=== PATIENT | female | born 1935 | race Caucasian/White ===

== ENCOUNTER 2016-07-17 10:57 | Inpatient (IN) | payer OTHER ==
[~2016-07-17] VITALS: Ht 157.5 cm; Wt 57.6 kg
[~2016-07-17 10:57] MED LIST: ASPEC81 PO; B-COTAB53 PO; CALC1TAB9 PO; CLB/200 PO; DLCSR120 PO; GLC/500 PO; HYDR12.55 PO; IMDSR30 PO; LOSA100T65 PO; METO25TA3 PO; TIMO0.5S35 OP; TRAM-10 PO; VYT1010 PO; [UNRECOGNIZED DRUG - CODE] PO
[2016-07-17] MEDS ORDERED: SODIUM CHLORIDE 0.9% 1000ML 1,000 ML IV STA (11:24)
[2016-07-17] MEDS ORDERED: DILTIAZEM BOLUS / DRIP IV STA ×2 (11:29→13:18)
[2016-07-17] MEDS ORDERED: SODIUM CHLORIDE 0.9% 500ML 500 ML IV STA (11:29)
[2016-07-17] MEDS ORDERED: DILTIAZEM HCL INJ 125 MG in DEXTROSE 5% 100ML IV SCH (11:29)
[2016-07-17] MEDS ORDERED: DILTIAZEM HCL 5 MG/ML 5 ML VIAL IV STA ×2 (11:29→12:16)
[2016-07-17 11:37] LABS: BASO % 0.3 %; BASO ABS # 0.05 K/uL (0-0.2); COMPLETE YES; EOS % 0.2 %; HEMATOCRIT 42.6 % (37-47); IG% 0.4 %; LYMPH ABS # 2.18 K/uL (1.2-3.4); MEAN CELL VOLUME 87.5 fL (80-100); MEAN CORPUSCULAR HEMOGLOBIN 30.2 pg (25-34); MEAN CORPUSCULAR HGB CONC 34.5 g/dl (32-36); MEAN PLATELET VOLUME 9.2 fL (7.4-10.4); MONO % 9.4 %; NEUT % 77.7 %; PLATELET COUNT 451 K/uL (130-400); RED BLOOD COUNT 4.87 M/uL (4.2-5.4); WHITE BLOOD COUNT 18.11 K/uL (4.8-10.8)
[2016-07-17 11:39] LABS: ISTAT CREATININE 1.6 mg/dl (0.6-1.3); ISTAT HEMOGLOBIN 15.3 g/dl (12.0-16.0); ISTAT IONIZED CALCIUM 1.14 mmol/l (1.12-1.32)
--- NOTE | 2016-07-17 11:49 | DIAGNOSTIC IMAGING REPORT ---
CHEST ONE VIEW PORTABLE CLINICAL HISTORY: Weakness. Congestion. COMPARISON STUDY: Chest radiograph February 21, 2016. FINDINGS: Pacer pads overlie the chest. There is no pneumothorax or pleural effusion. There is no evidence of pulmonary edema. Mild cardiomegaly is unchanged. No consolidation to suggest pneumonia. IMPRESSION: No acute cardiopulmonary findings. Electronically signed by: Yan Alexis M.D. 07/17/2016 11:47 AM Dictated Date/Time: 07/17/2016 11:47 AM
[2016-07-17 11:50] LABS: PARTIAL THROMBOPLASTIN RATIO 1.1; PROTHROMBIN TIME (PATIENT) 11.2 SECONDS (9.0-12.0)
[2016-07-17 11:53] LABS: CALCIUM 9.9 mg/dl (8.5-10.1)
[2016-07-17 11:55] LABS: BUN/CREATININE RATIO 11.6 (10-20); CREATININE 1.7 mg/dl (0.60-1.20); MAGNESIUM 2.1 mg/dl (1.8-2.4); POTASSIUM 3.3 mmol/L (3.5-5.1)
[2016-07-17 12:07] LABS: CKMB/CK RATIO 3.5 (0-3.0); THYROID STIMULATING HORMONE 1.9 uIu/ml (0.300-4.500)
[2016-07-17] MEDS ORDERED: LEVAQUIN 750MG / 150ML D5W IV STA (12:16)
[2016-07-17] MEDS ORDERED: ASPIRIN 81 MG CHEW PO STA (12:17)
[2016-07-17] MEDS ORDERED: POTASSIUM CHLORIDE 10 MEQ / 100ML WTR IV STA (12:18)
[2016-07-17] MEDS ORDERED: [UNRECOGNIZED DRUG - CODE] PO (12:31)
[2016-07-17] MEDS ORDERED: EZET1TAB27 PO (12:31)
[2016-07-17] MEDS ORDERED: HEPARIN SOD 5000 UNIT/0.5 ML CARP IV STA (13:05)
--- NOTE | 2016-07-17 13:08 | EMERGENCY ROOM VISIT NOTE ---
History Report prepared by Dyllan: Cy Pérez Under the Supervision of: Dr. Alek Trujillo M.D. First contact with patient: 11:18 Chief Complaint: CONGESTION Stated Complaint: CONGESTION, COUGH, UNSTEADY,CAN NOT TALK Nursing Triage Summary: pt here with chest and nasal congestion x one week. pt is also hoarse. pt also having some increased unsteadiness. daughter is concerned for pneumonia. pt told daughter she wanted to come here. History of Present Illness The patient is a 80 year old female who presents to the Emergency Room with complaints of persistent chest and nasal congestion starting about a week ago. She has shortness of breath with ambulation. She reports a cough with mucous production. Pt denies LOC, headache, fevers, chills, diaphoresis, visual changes , lightheadedness, neck pain, chest pain, nausea, vomiting, abdominal pain, back pain, melena, hematochezia, urinary symptoms, numbness, weakness, lymphadenopathy, rash, or other complaints. She is not currently on Coumadin. She has a history of tachycardia and A-Fib with an attempted ablation. She also has a history of hypertension. She takes Diltazem and Metoprolol. She denies missing any doses of her prescribed medications. Source of History: patient Onset: about a week ago Position: chest, other (nasal) Quality: other (congestion) Timing: other (persistent) Associated Symptoms: + SOB, + cough Review of Systems See HPI for pertinent positives and negatives. A total of ten systems were reviewed and were otherwise negative. Past Medical & Surgical Medical Problems: (1) Breast cancer (2) Chest pain (3) DJD (degenerative joint disease), lumbar (4) DM type 2 (diabetes mellitus, type 2) (5) Dyslipidemia (6) Dyspnea on exertion (7) H/o sinus node reentry tachycardia (8) Hypertension (9) Ocular hypertension (10) Paroxysmal atrial fibrillation (11) Renal artery stenosis Surgical Problems: (1) History of cataract surgery (2) History of cholecystectomy (3) History of lumbar laminectomy (4) Previous section (5) S/P laparoscopic cholecystectomy (6) S/P partial mastectomy Family History Diabetes mellitus FHx: cancer FHx: gallbladder disease Hypertension Social History Smoking Status: Never Smoker Drug Use: none Marital Status: Housing Status: lives alone Occupation Status: unemployed Current/Historical Medications Scheduled Aspirin Enteric Coated (Ecotrin Or Generic *), 81 MG PO DAILY B-Complex W/ Folic Acid (B Complex), 1 TAB PO DAILY Calcium Citrate-Vitamin D (Citracal + D3 Maximum), 1 TAB PO DAILY Diltiazem Hcl Ext Rel (Dilacor Xr *), 120 MG PO DAILY Ezetimibe-Simvastatin (Ezetimibe/Simvastatin 10-10 mg), 1 TAB PO DAILY Hydrochlorothiazide (Hydrochlorothiazide), 1 TAB PO DAILY Isosorbide Mononitrate (Isosorbide Mononitrate ER), 30 MG PO QAM Losartan Potassium (Cozaar), 1 TAB PO DAILY Metformin Hcl (Glucophage), 500 MG PO BID Metoprolol Succinate (Toprol Xl), 25 MG PO HS Timolol Maleate (Ophth) (Timoptic), 1 DROPS OP UD Tolterodine Tartrate (Tolterodine Tartrate), 1 MG PO BID Scheduled PRN Celecoxib (CeleBREX), 200 MG PO DAILY PRN for Pain Tramadol (Ultram), 50 MG PO Q6H PRN for Pain Allergies Coded Allergies: Ampicillin (Unverified Adverse Reaction, Unknown, DIARRHEA, 07/17/16) Physical Exam Vital Signs Date Time Temp Pulse Resp B/P Pulse Ox O2 Delivery O2 Flow Rate FiO2 07/17/16 13:02 120 18 105/60 98 Nasal Cannula 2.0 07/17/16 13:00 114 07/17/16 12:56 117 18 114/61 96 Nasal Cannula 2.0 07/17/16 12:40 105 16 113/57 98 Nasal Cannula 2.0 07/17/16 12:30 130 16 98/65 98 Nasal Cannula 2.0 07/17/16 12:23 117 18 126/75 99 Nasal Cannula 2.0 07/17/16 12:20 165 18 112/84 97 Nasal Cannula 2.0 07/17/16 12:18 172 20 132/86 98 Nasal Cannula 2.0 07/17/16 12:12 172 22 91/73 99 Nasal Cannula 2.0 07/17/16 11:50 130 16 112/84 96 Nasal Cannula 2.0 07/17/16 11:45 102 16 94/68 96 Nasal Cannula 2.0 07/17/16 11:41 36.5 171 16 105/73 96 07/17/16 11:38 171 20 88/67 96 Room Air 07/17/16 11:38 96 Nasal Cannula 2.0 07/17/16 11:38 96 Nasal Cannula 2.0 07/17/16 11:22 181 07/17/16 11:08 36.5 154 16 77/65 98 Room Air Physical Exam GENERAL: Awake, alert, tired-appearing, in no distress HENT: Normocephalic, atraumatic. Oropharynx unremarkable. EYES: Normal conjunctiva. Sclera non-icteric. NECK: Supple. No nuchal rigidity. FROM. No JVD. RESPIRATORY: Clear to auscultation. CARDIAC: Very tachycardic heart rate, normal rhythm. Extremities warm and well perfused. Pulses equal. ABDOMEN: Soft, non-distended. No tenderness to palpation. No rebound or guarding. No masses. RECTAL: Deferred. MUSCULOSKELETAL: Chest examination reveals no tenderness. The back is symmetrical on inspection without obvious abnormality. There is no CVA tenderness to palpation. No joint edema. LOWER EXTREMITIES: Calves are equal size bilaterally and non-tender. No edema. No discoloration. NEURO: Normal sensorium. No sensory or motor deficits noted. SKIN: No rash or jaundice noted. Medical Decision & Procedures ER Provider Diagnostic Interpretation: Xray results as stated below per my and radiologist interpretation: CHEST ONE VIEW PORTABLE CLINICAL HISTORY: Weakness. Congestion. COMPARISON STUDY: Chest radiograph February 21, 2016. FINDINGS: Pacer pads overlie the chest. There is no pneumothorax or pleural effusion. There is no evidence of pulmonary edema. Mild cardiomegaly is unchanged. No consolidation to suggest pneumonia. IMPRESSION: No acute cardiopulmonary findings. Electronically signed by: Yan Alexis M.D. 07/17/2016 11:47 AM Dictated Date/Time: 07/17/2016 11:47 AM Laboratory Results 07/17/16 11:24 Red Blood Count 4.87, Mean Corpuscular Volume 87.5, Mean Corpuscular Hemoglobin 30.2, Mean Corpuscular Hemoglobin Concent 34.5, Mean Platelet Volume 9.2, Neutrophils (%) (Auto) 77.7, Lymphocytes (%) (Auto) 12.0, Monocytes (%) (Auto) 9.4, Eosinophils (%) (Auto) 0.2, Basophils (%) (Auto) 0.3, Neutrophils # (Auto) 14.07, Lymphocytes # (Auto) 2.18, Monocytes # (Auto) 1.70, Eosinophils # (Auto) 0.04, Basophils # (Auto) 0.05 07/17/16 11:24 Test 07/17/16 11:24 07/17/16 11:26 White Blood Count 18.11 K/uL (4.8-10.8) Red Blood Count 4.87 M/uL (4.2-5.4) Hemoglobin 14.7 g/dL (12.0-16.0) Hematocrit 42.6 % (37-47) Mean Corpuscular Volume 87.5 fL (80-100) Mean Corpuscular Hemoglobin 30.2 pg (25-34) Mean Corpuscular Hemoglobin Concent 34.5 g/dl (32-36) Platelet Count 451 K/uL (130-400) Mean Platelet Volume 9.2 fL (7.4-10.4) Neutrophils (%) (Auto) 77.7 % Lymphocytes (%) (Auto) 12.0 % Monocytes (%) (Auto) 9.4 % Eosinophils (%) (Auto) 0.2 % Basophils (%) (Auto) 0.3 % Neutrophils # (Auto) 14.07 K/uL (1.4-6.5) Lymphocytes # (Auto) 2.18 K/uL (1.2-3.4) Monocytes # (Auto) 1.70 K/uL (0.11-0.59) Eosinophils # (Auto) 0.04 K/uL (0-0.5) Basophils # (Auto) 0.05 K/uL (0-0.2) RDW Standard Deviation 42.0 fL (36.4-46.3) RDW Coefficient of Variation 13.1 % (11.5-14.5) Immature Granulocyte % (Auto) 0.4 % Immature Granulocyte # (Auto) 0.07 K/uL (0.00-0.02) Prothrombin Time 11.2 SECONDS (9.0-12.0) Prothromb Time International Ratio 1.0 (0.9-1.1) Activated Partial Thromboplast Time 28.6 SECONDS (21.0-31.0) Partial Thromboplastin Ratio 1.1 Est Creatinine Clear Calc Drug Dose 20.5 ml/min Estimated GFR () 32.2 Estimated GFR (Non- 27.8 BUN/Creatinine Ratio 11.6 (10-20) Calcium Level 9.9 mg/dl (8.5-10.1) Magnesium Level 2.1 mg/dl (1.8-2.4) Total Bilirubin 0.6 mg/dl (0.2-1) Direct Bilirubin 0.3 mg/dl (0-0.2) Aspartate Amino Transf (AST/SGOT) 40 U/L (15-37) Alanine Aminotransferase (ALT/SGPT) 41 U/L (12-78) Alkaline Phosphatase 143 U/L (45-117) Total Creatine Kinase 65 U/L (26-192) Creatine Kinase MB 2.3 ng/ml (0.5-3.6) Creatine Kinase MB Ratio 3.5 (0-3.0) Troponin I 0.338 ng/ml (0-0.045) Total Protein 7.5 gm/dl (6.4-8.2) Albumin 2.9 gm/dl (3.4-5.0) Thyroid Stimulating Hormone (TSH) 1.900 uIu/ml (0.300-4.500) Bedside Hemoglobin 15.3 g/dl (12.0-16.0) Bedside Hematocrit 45 % (37-47) Bedside Sodium 137 mEq/L (135-144) Bedside Potassium 3.3 mEq/L (3.3-5.0) Bedside Chloride 95 mEq/L (101-112) Bedside Total CO2 26 mEq/l (24-31) Anion Gap 21.0 mmol/L (16-25) Bedside Blood Urea Nitrogen 20 mg/dl (7-18) Bedside Creatinine 1.6 mg/dl (0.6-1.3) Bedside Glucose (other) 164 mg/dl (70-99) Bedside Ionized Calcium (Yenni) 1.14 mmol/l (1.12-1.32) Laboratory results reviewed by me Medications Administered Medications (Trade) Dose Ordered Sig/[place]elaide Route Start Time Stop Time Status Last Admin Dose Admin Sodium Chloride 1,000 ml @ 125 mls/hr Q8H STAT IV 07/17/16 11:24 07/17/16 19:23 07/17/16 12:12 125 MLS/HR Sodium Chloride (Nss 500ml) 500 ml @ 999 mls/hr Q31M STAT IV 07/17/16 11:29 07/17/16 11:59 DC 07/17/16 11:38 999 MLS/HR Diltiazem HCl 10 mg 10 mg NOW STAT IV 07/17/16 11:29 07/17/16 11:31 DC 07/17/16 11:37 10 MG Diltiazem HCl/ Dextrose (Cardizem Inj/D5 100ml) 125 ml @ 0 mls/hr Q0M IV 07/17/16 11:29 07/31/16 13:00 07/17/16 12:11 5 MLS/HR Levofloxacin (Levaquin / D5W) 750 mg NOW STAT IV 07/17/16 12:16 07/17/16 12:17 DC 07/17/16 12:32 750 MG Diltiazem HCl (Cardizem Inj) 10 mg NOW STAT IV 07/17/16 12:16 07/17/16 12:17 DC 07/17/16 12:19 10 MG Aspirin (Aspirin Chew) 324 mg NOW STAT PO 07/17/16 12:17 07/17/16 12:18 DC 07/17/16 12:33 324 MG Potassium Chloride (Kcl 10 Meq / Wtr) 10 meq NOW STAT IV 07/17/16 12:18 07/17/16 12:19 DC 07/17/16 12:33 10 MEQ ECG Indication: SOB/dyspnea Rate (beats per minute): 178 Rhythm: other (Wide Complex tachycardia) Findings: LBBB, left axis deviation Comparison ECG Date: February 24, 2016 Change: Left bundle branch is old but the tachycardia is new when compared to February 24, 2016. Repeat EKG showed A Fib with RVR, 117 beats per minute, left axis deviation, left bundle branch block, no acute ischemic changes. ED Course 1118: The patient was evaluated in room B08. A complete history and physical exam was performed. 1124: Sodium Chloride 1000 ml @ 125 mls/hr IV 1129: Cardizem Inj 10 mg IV, Sodium Chloride 500 ml @ 999 mls/hr IV 1156: I reevaluated the patient who is stable. Her heart rate is improving. 1216: Diltiazem HCl 10 mg IV, Levofloxacin 750 mg IV 1217: Aspirin 324 mg PO 1218: Potassium Chloride 10 meq IV 1230: I discussed the patient's case with Dr. Hirsch, from [facility]. Upon reexamination, the patient was resting comfortably. I discussed the test results and treatment plan with her. The patient will be evaluated for further management. 1239: I discussed the patient's case with Dr. Turner, duct installer with [facility], who recommended anticoagulation. 1252: Heparin Sodium/Dextrose 1 ea N/A Medical Decision Triage Nursing notes reviewed. The patient's presentation and history were concerning for congestion. Etiologies such as pneumonia, COPD, reactive airway disease, CHF, cardiac ischemia, pulmonary embolism, pneumothorax, musculoskeletal, infections, gastrointestinal, as well as others were entertained. The patient was evaluated. She has had flulike symptoms. She was found to be significantly tachycardic and borderline hypotensive. 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 The patient had a fluid bolus initiated. She was given IV Cardizem and a drip was initiated. Her ECG showed a wide-complex tachycardia with a left bundle branch block. This appeared to be similar to prior QRS morphology. The patient did have variability noted on monitor which seemed to be most consistent with a rapid atrial fibrillation. The patient did improve with Cardizem but did require a second bolus. Her repeat ECG did show A. fib with RVR but much improved with regards to the rate. She had an 18,000 white count but no pneumonia on chest x-ray. She does have moderate sinus congestion. This is concerning for sinusitis. The patient had acute kidney injury with a creatinine went from 10.7 up to 1.7. She also had an elevated troponin. This was likely due to rate related stress. She was given aspirin and potassium. IV Levaquin was given. The patient has a allergy to ampicillin. The patient was reassessed at times and was doing well. Consultation was made with the [facility] service. Crit allergy consultation was requested as well. I did discuss the case with [facility] cardiology. The patient was heparinized and will be seen by internal medicine and cardiology for further management. The chart was completed utilizing [employer] voice recognition software. Grammatical errors, random word insertions, pronoun errors, and incomplete sentences are an occasional consequence of this system due to software limitations, ambient noise, and hardware issues. Any formal questions or concerns about the content, text, or information contained within the body of this dictation should be directly addressed to the physician for clarification. Consults Time Called: 1227 Consulting Physician: Dr. Hirsch, from [facility] Returned Call: 1230 I discussed the patient's case with Dr. Hirsch, from [facility]. Additional Consults: Time Called: 1233 Consulted Physician: Dr. Turner, duct installer with [facility] Returned Call: 1230 Additional Comments: I discussed the patient's case with Dr. Turner, duct installer with [facility], who recommended anticoagulation. Impression Primary Impression: Atrial fibrillation with RVR Additional Impressions: Elevated troponin Sinusitis Acute kidney injury Critical Care I have personally spent greater than 30 minutes of critical care time in the direct management of this patient. This includes bedside care, interpretation of diagnostic studies, and testing, discussion with consultants, patient, and family members, and other required patient management activities. This 30 minutes is in excess of all separately billable procedures. Scribe Attestation The scribe's documentation has been prepared under my direction and personally reviewed by me in its entirety. I confirm that the note above accurately reflects all work, treatment, procedures, and medical decision making performed by me. Departure Information Dispostion Being Evaluated By Hospitalist Referrals Rosanne Uribe M.D. (PCP) Patient Instructions My [facility] Problem Qualifiers
[2016-07-17] MEDS ORDERED: HEPARIN 25,000 UNIT/500ML D5W 500 ML IV PRN (13:15)
[2016-07-17] MEDS ORDERED: ONDANSETRON INJ 2 MG/ML 2 ML VIAL IV PRN (13:15)
[2016-07-17] MEDS ORDERED: ACETAMINOPHEN 325 MG TAB PO PRN (13:15)
[2016-07-17] MEDS ORDERED: POTASSIUM CHLORIDE 20 MEQ TABCR PO ONE (13:15)
[2016-07-17] MEDS ORDERED: TRAMADOL HCL 50 MG TAB PO PRN (13:30)
[2016-07-17] MEDS ORDERED: TIMOLOL MALEATE 0.5% OP SOLN 5 ML BTL OP SCH (13:30)
[2016-07-17] MEDS ORDERED: COUGH DROP (SUGAR FREE) LOZ 24 LOZ/1 BOX ONE (13:47)
--- NOTE | 2016-07-17 14:08 | History and Physical ---
History & Physical Date & Time of Service: July 17, 2016 at 13:42 Chief Complaint: Cough, Congestion Primary Care Physician: Rosanne Uribe M.D. History of Present Illness 80 year old female who presents to the ER with cough and congestion. Patient reports her symptoms have been present for one week and have been progressively getting worse. She also reports associated sinus pressure. Cough is productive for green sputum. She denies fever and chills. She reports she initially had a sore throat that has since resolved. Her voice is hoarse. She denies chest pain , palpitations, and shortness of breath. She reports chronic lightheadedness with standing that is unchanged from baseline. She denies dizziness or syncopal events. She has had a poor appetite but denies nausea, vomiting, diarrhea, or abdominal pain. She denies urinary symptoms. In the ER, patient was found to have a wide complex tachycardia with rates in the 180s. HR was able to be slowed down with Cardizem and underlying rhythm is atrial fibrillation with LBBB. She is asymptomatic from a cardiac stand point. She was placed on Cardizem and Heparin drips. She was also given Levaquin, IVF, and full dose aspirin. Past Medical/Surgical History Medical Problems: (1) Breast cancer Status: Chronic (2) DJD (degenerative joint disease), lumbar Status: Chronic (3) DM type 2 (diabetes mellitus, type 2) Status: Chronic (4) Dyslipidemia Status: Chronic (5) Hypertension Status: Chronic (6) Ocular hypertension Status: Chronic (7) Paroxysmal atrial fibrillation Status: Chronic (8) Renal artery stenosis Status: Chronic Surgical Problems: (1) History of cataract surgery Status: Chronic (2) History of cholecystectomy Status: Chronic (3) History of lumbar laminectomy Status: Chronic (4) Previous section Status: Chronic (5) S/P laparoscopic cholecystectomy Status: Chronic (6) S/P partial mastectomy Status: Chronic Family History non contributory due to patient's advanced age Social History Smoking Status: Never Smoker Alcohol Use: none Marital Status: Housing status: lives alone Immunizations History of Influenza Vaccine: Yes Influenza Vaccine Date: Mar 12, 2016 History of Tetanus Vaccine?: Yes Tetanus Immunization Date: May 27, 2007 History of Pneumococcal: Yes Pneumococcal Date: Oct 24, 2015 Allergies Coded Allergies: Ampicillin (Unverified Adverse Reaction, Unknown, DIARRHEA, 07/17/16) Home Medications Scheduled Aspirin Enteric Coated (Ecotrin Or Generic *), 81 MG PO DAILY B-Complex W/ Folic Acid (B Complex), 1 TAB PO DAILY Calcium Citrate-Vitamin D (Citracal + D3 Maximum), 1 TAB PO DAILY Diltiazem Hcl Ext Rel (Dilacor Xr *), 120 MG PO DAILY Ezetimibe-Simvastatin (Ezetimibe/Simvastatin 10-10 mg), 1 TAB PO DAILY Hydrochlorothiazide (Hydrochlorothiazide), 1 TAB PO DAILY Losartan Potassium (Cozaar), 1 TAB PO DAILY Metformin Hcl (Glucophage), 500 MG PO BID Metoprolol Succinate (Toprol Xl), 25 MG PO HS Timolol Maleate (Ophth) (Timoptic), 1 DROPS OP UD Tolterodine Tartrate (Tolterodine Tartrate), 1 MG PO BID Scheduled PRN Celecoxib (CeleBREX), 200 MG PO DAILY PRN for Pain Tramadol (Ultram), 50 MG PO Q6H PRN for Pain Review of Systems ROS per HPI, all other systems reviewed and negative Physical Exam Vital Signs Date Time Temp Pulse Resp B/P Pulse Ox O2 Delivery O2 Flow Rate FiO2 07/17/16 13:29 125 18 110/76 97 Nasal Cannula 2.0 07/17/16 13:16 120 18 112/56 97 Nasal Cannula 2.0 07/17/16 13:02 120 18 105/60 98 Nasal Cannula 2.0 07/17/16 13:00 114 07/17/16 12:56 117 18 114/61 96 Nasal Cannula 2.0 07/17/16 12:40 105 16 113/57 98 Nasal Cannula 2.0 07/17/16 12:30 130 16 98/65 98 Nasal Cannula 2.0 07/17/16 12:23 117 18 126/75 99 Nasal Cannula 2.0 07/17/16 12:20 165 18 112/84 97 Nasal Cannula 2.0 07/17/16 12:18 172 20 132/86 98 Nasal Cannula 2.0 07/17/16 12:12 172 22 91/73 99 Nasal Cannula 2.0 07/17/16 11:50 130 16 112/84 96 Nasal Cannula 2.0 07/17/16 11:45 102 16 94/68 96 Nasal Cannula 2.0 07/17/16 11:41 36.5 171 16 105/73 96 07/17/16 11:38 171 20 88/67 96 Room Air 07/17/16 11:38 96 Nasal Cannula 2.0 07/17/16 11:38 96 Nasal Cannula 2.0 07/17/16 11:22 181 07/17/16 11:08 36.5 154 16 77/65 98 Room Air General Appearance: no apparent distress Head: normocephalic, + pertinent finding (no sinus tenderness on palpation) Eyes: normal inspection ENT: + pertinent finding (dry mucous membranes, voice hoarse) Neck: supple, no JVD Respiratory/Chest: lungs clear, normal breath sounds, no respiratory distress Cardiovascular: no edema, + tachycardia (rates in the 110s), + irregularly irregular Abdomen/GI: normal bowel sounds, non tender, soft Extremities/Musculoskelatal: normal inspection, no calf tenderness Neurologic/Psych: no motor/sensory deficits, alert, normal mood/affect, oriented x 3 Skin: normal color, warm/dry Diagnostics Laboratory Results Results Past 24 Hours Test 07/17/16 11:24 07/17/16 11:26 Range/Units White Blood Count 18.11 4.8-10.8 K/uL Red Blood Count 4.87 4.2-5.4 M/uL Hemoglobin 14.7 12.0-16.0 g/dL Hematocrit 42.6 37-47 % Mean Corpuscular Volume 87.5 80-100 fL Mean Corpuscular Hemoglobin 30.2 25-34 pg Mean Corpuscular Hemoglobin Concent 34.5 32-36 g/dl Platelet Count 451 130-400 K/uL Mean Platelet Volume 9.2 7.4-10.4 fL Neutrophils (%) (Auto) 77.7 % Lymphocytes (%) (Auto) 12.0 % Monocytes (%) (Auto) 9.4 % Eosinophils (%) (Auto) 0.2 % Basophils (%) (Auto) 0.3 % Neutrophils # (Auto) 14.07 1.4-6.5 K/uL Lymphocytes # (Auto) 2.18 1.2-3.4 K/uL Monocytes # (Auto) 1.70 0.11-0.59 K/uL Eosinophils # (Auto) 0.04 0-0.5 K/uL Basophils # (Auto) 0.05 0-0.2 K/uL RDW Standard Deviation 42.0 36.4-46.3 fL RDW Coefficient of Variation 13.1 11.5-14.5 % Immature Granulocyte % (Auto) 0.4 % Immature Granulocyte # (Auto) 0.07 0.00-0.02 K/uL Prothrombin Time 11.2 9.0-12.0 SECONDS Prothromb Time International Ratio 1.0 0.9-1.1 Activated Partial Thromboplast Time 28.6 21.0-31.0 SECONDS Partial Thromboplastin Ratio 1.1 Sodium Level 137 136-145 mmol/L Potassium Level 3.3 3.5-5.1 mmol/L Chloride Level 99 98-107 mmol/L Carbon Dioxide Level 27 21-32 mmol/L Anion Gap 11.0 21.0 16-25 mmol/L Blood Urea Nitrogen 20 7-18 mg/dl Creatinine 1.70 0.60-1.20 mg/dl Est Creatinine Clear Calc Drug Dose 20.5 ml/min Estimated GFR () 32.2 Estimated GFR (Non- 27.8 BUN/Creatinine Ratio 11.6 10-20 Random Glucose 154 70-99 mg/dl Calcium Level 9.9 8.5-10.1 mg/dl Magnesium Level 2.1 1.8-2.4 mg/dl Total Bilirubin 0.6 0.2-1 mg/dl Direct Bilirubin 0.3 0-0.2 mg/dl Aspartate Amino Transf (AST/SGOT) 40 15-37 U/L Alanine Aminotransferase (ALT/SGPT) 41 12-78 U/L Alkaline Phosphatase 143 45-117 U/L Total Creatine Kinase 65 26-192 U/L Creatine Kinase MB 2.3 0.5-3.6 ng/ml Creatine Kinase MB Ratio 3.5 0-3.0 Troponin I 0.338 0-0.045 ng/ml Total Protein 7.5 6.4-8.2 gm/dl Albumin 2.9 3.4-5.0 gm/dl Thyroid Stimulating Hormone (TSH) 1.900 0.300-4.500 uIu/ml Bedside Hemoglobin 15.3 12.0-16.0 g/dl Bedside Hematocrit 45 37-47 % Bedside Sodium 137 135-144 mEq/L Bedside Potassium 3.3 3.3-5.0 mEq/L Bedside Chloride 95 101-112 mEq/L Bedside Total CO2 26 24-31 mEq/l Bedside Blood Urea Nitrogen 20 7-18 mg/dl Bedside Creatinine 1.6 0.6-1.3 mg/dl Bedside Glucose (other) 164 70-99 mg/dl Bedside Ionized Calcium (Yenni) 1.14 1.12-1.32 mmol/l Microbiology Results 07/17/16 Blood Culture, Received Pending 07/17/16 Blood Culture, Received Pending Diagnostic Radiology CXR IMPRESSION: No acute cardiopulmonary findings. Impression Assessment and Plan ATRIAL FIBRILLATION WITH RVR - admit to tele - patient presenting with sinusitis type symptoms; found to be in wide complex tachycardia with rates in the 180s, rate was slowed down with Cardizem and underlying rhythm is atrial fibrillation RVR with LBBB; was asymptomatic from a cardiac stand point - has history of PAF - on diltiazem and metoprolol; not anticoagulated due to unsteady gait / fall risk - likely sinusitis and dehydration as precipitating factor - K+ mildly low at 3.3, normal Mg+ and TSH - echo - cardizem drip started in ER with improvement in rates, will continue with - heparin drip also started in ER, will continue with for now and defer decision of group home anticoagulation to cardiology; CHADS2 score 3 (HTN, age, DM) ELEVATED TROPONIN - likely demand ischemia from tachycardia - continue to cycle cardiac enzymes - resting echo - continue ASA and statin; holding metoprolol while on cardizem gtt - cath 2006 - normal coronaries GISELLE - likely due to acute illness - IVF, follow up labs in AM - hold HCTZ and Losartan HYPOKALEMIA - mild, replace - Mg+ WNL SINUSITIS - s/p Levaquin in ED, will continue with - WBC 18K, tachycardia - does not appear toxic, do not suspect sepsis DM - hgb a1c 10/2015 - hold metformin and utilize SSI while hospitalized HTN - BP low on arrival which improved with HR control - holding diltiazem and metoprolol while on Cardizem gtt; holing HCTZ and Losartan due to GISELLE DVT PROPHYLAXIS - on Heparin gtt CODE STATUS - Patient is a full code as per my discussion with her. DISPO - In my clinical judgment this beneficiary meets acute admission criteria, established by [facility], that includes being hospitalized through two midnights. Attending Addendum: The patient was seen and examined Presented with Cough ,congestion and sinus pain /pressure Generally weak and lethargic NO Chest pain/palpitation Noted to have Wide complex Tachycardia in ER and started on IV Cardizem O/E No acute distress Hemodynamically stable Chest-Decreased breath sound bilaterally Heart-irregular,2/6 ESM precordial area Abdomen-benign,no masses,bowel sound present Extremities-negative for any edema Labs and Imaging studies were reviewed Agree with the assessment and plan. Dr Rehana Hirsch VTE Prophylaxis VTE Risk Assessment Done? Y/N: Yes Risk Level: Moderate Given or contraindicated: Other Anticoagulation
[2016-07-17] MEDS ORDERED: GLUCOSE 40% GEL 15 GM TUBE PO PRN (14:15)
[2016-07-17] MEDS ORDERED: DEXTROSE 50% 50 ML SYR IV PRN (14:15)
[2016-07-17] MEDS ORDERED: GLUCAGON FOR INJ 1 MG VIAL SQ PRN (14:15)
[2016-07-17] MEDS ORDERED: GLUCOSE 10 TABS/TUBE PO PRN (14:15)
[2016-07-17] MEDS ORDERED: METOPROLOL TARTRATE 50 MG TAB PO STA (15:07)
[2016-07-17 15:30] VITALS: BP 104/64; PULSE 112; TEMP 36.9; O2SAT 95; Ht 157.5 cm; Wt 57.6 kg
[2016-07-17] MEDS: SODIUM CHLORIDE 0.9% 1000ML 1,000 ML IV SCH (15:30)
[2016-07-17] MEDS: INSULIN ASPART 100 UNITS/ML 3 ML PEN SC SCH ×2 (16:15→20:55)
--- NOTE | 2016-07-17 17:50 | CARDIOLOGY CONSULTATION ---
DATE OF CONSULTATION: 07/17/2016 REFERRING PHYSICIAN: Johnathan Hirsch MD REASON FOR CONSULTATION: Paroxysmal atrial fibrillation with rapid ventricular response. HISTORY OF PRESENT ILLNESS: Ms. Beth is an 80-year-old female with a past history of paroxysmal supraventricular tachycardia (AVNRT) as well as paroxysmal atrial fibrillation. She reports upper respiratory tract congestion, cough, sputum production for approximately 7 days. She has also noted hoarseness. Positive sick contact with her son. No fever or subjective chills. Denies chest pain or unusual shortness of breath. No orthopnea or PND. The patient presented to the Emergency Department due to worsening congestion. She was noted to be in atrial fibrillation with rapid ventricular response. She was treated with 2 rounds of intravenous diltiazem, 10 mg. She was mildly hypotensive; however, asymptomatic. Her heart rate improved from the 160s down to approximately 110 beats per minute. Her ECG demonstrates atrial fibrillation with a left bundle branch block. The patient states she is unsure whether she took her a.m. Cardizem or beta evy therapy last night. Family is present at bedside. Initial troponin is mildly elevated. She offers no other complaints at this time. REVIEW OF SYSTEMS: Pertinent positives are noted above. A comprehensive 10-system review is otherwise negative. PAST MEDICAL HISTORY: 1. AVNRT. 2. Paroxysmal atrial fibrillation. 3. Diabetes type 2. 4. Degenerative joint disease. 5. Dyslipidemia. 6. Hypertension. 7. Renal artery stenosis. 8. History of breast cancer PAST SURGICAL HISTORY: 1. Cardiac catheterization in 2006 demonstrating normal coronary arteries. 2. Cholecystectomy. 3. Laminectomy. 4. . 5. Mastectomy. FAMILY HISTORY: Noncontributory given the patient's advanced age; however, no history of premature CAD or sudden cardiac . SOCIAL HISTORY: Lifelong nonsmoker. She is and lives alone. ALLERGIES: AMPICILLIN. HOME MEDICATIONS: 1. Aspirin 81 mg daily. 2. Diltiazem XR 120 mg daily. 3. Vytorin 10/10 daily. 4. Hydrochlorothiazide 12.5 mg daily. 5. Losartan 50 mg daily. 6. Metformin 500 mg b.i.d. 7. Toprol-XL 25 mg at bedtime. 8. Timolol eyedrops. 9. Tolterodine tartrate 1 mg twice daily. 10. Celebrex 200 mg daily as needed. 11. Tramadol 50 mg q. 6 hours as needed. IMAGING DATA: ECG on admission is wide QRS tachycardia with heart rate of 178 beats per minute. Repeat ECG; atrial fibrillation with rapid ventricular response, left bundle branch block, and left axis deviation. LABORATORY DATA: Initial troponin 0.338. Sodium 137, potassium 3.3, chloride 95, CO2 is 26, BUN is 20, creatinine is 1.6, and magnesium is 2.1. TSH is 1.90. White blood cell count is 18.11, hemoglobin is 14.7, platelet count 451. INR is 1.0. Chest x-ray on admission: No acute cardiopulmonary findings. PHYSICAL EXAMINATION: VITAL SIGNS: Temperature is 36.5 degrees centigrade, pulse 110 beats per minute and irregular, respiratory rate is 20 breaths per minute, blood pressure 112/70, SaO2 is 97% on 2 liters. GENERAL: Chronically ill, pale, no acute distress. She is awake and alert. Hard of hearing. HEENT: Mucous membranes dry. No scleral icterus. Conjunctivae pink. NECK: Veins are flat. There is no JVD or HJR. No carotid bruit. HEART: Irregular and tachycardic with a normal S1 and S2. There is no murmur, rub, or gallop appreciated. LUNGS: Demonstrate scattered rhonchi bilaterally. No rales or wheeze. ABDOMEN: Soft, nontender. No rebound or guarding. Normal bowel sounds. EXTREMITIES: Warm and dry. There is no clubbing, cyanosis, or edema. NEUROLOGIC: Demonstrates no focal motor deficit. FINAL IMPRESSION: 1. Paroxysmal atrial fibrillation with rapid ventricular response, precipitated by possible upper respiratory tract infection and sinusitis. 2. Left bundle branch block. 3. Acute renal insufficiency secondary to volume depletion, diuretic therapy, poor oral intake. 4. Hypotension secondary to volume depletion. 5. Mildly elevated troponin, likely type 2 event in the setting of rapid atrial fibrillation and demand ischemia. PLAN AND RECOMMENDATIONS: Oral metoprolol will be increased to 25 mg twice daily. She will receive one dose now. She will continue intravenous diltiazem infusion for rate control. Recommend IV hydration gently at this time as well. Antibiotics per internal medicine. Repeat resting 2D transthoracic echo ordered. Cardiac enzymes will be trended x3 sets. We will continue to follow closely during hospitalization. Thank you for allowing me to take part in the care of your patient.
[2016-07-17 18:59] VITALS: BP 117/69; PULSE 105; TEMP 36.8; O2SAT 100
[2016-07-17 20:07] LABS: PARTIAL THROMBOPLASTIN RATIO 1.4
[2016-07-17 20:24] VITALS: BP 91/60
[2016-07-17] MEDS: TOLTERODINE TARTRATE 1 MG TAB PO SCH (20:24)
[2016-07-17] MEDS: EZETIMIBE 10MG TAB PO SCH (20:24)
[2016-07-17] MEDS: METOPROLOL TARTRATE 25 MG TAB PO SCH (20:25)
[2016-07-17] MEDS ORDERED: HEPARIN IV BOLUS 4,000 UNIT in SYRINGE 0 ML IV ONE (21:00)
[2016-07-17 23:06] VITALS: BP 101/63; PULSE 87; TEMP 36.8; O2SAT 98
[2016-07-17 23:30] VITALS: O2SAT 94
[2016-07-18] VITALS (7 sets, daily range): BP systolic 93–138; BP diastolic 54–85; PULSE 77–102; TEMP 36.6–36.9; O2SAT 94–97
[2016-07-18] MEDS: DILTIAZEM HCL INJ 125 MG in DEXTROSE 5% 100ML IV PRN (00:29)
[2016-07-18] MEDS: SODIUM CHLORIDE 0.9% 1000ML 1,000 ML IV SCH ×2 (01:08→16:00)
[2016-07-18 02:25] LABS: HEMATOCRIT 35.1 % (37-47); MEAN CELL VOLUME 87.5 fL (80-100); MEAN CORPUSCULAR HEMOGLOBIN 29.7 pg (25-34); MEAN CORPUSCULAR HGB CONC 33.9 g/dl (32-36); PLATELET COUNT 340 K/uL (130-400); RED BLOOD COUNT 4.01 M/uL (4.2-5.4); WHITE BLOOD COUNT 15.03 K/uL (4.8-10.8)
[2016-07-18 02:44] LABS: PARTIAL THROMBOPLASTIN RATIO 3.5
[2016-07-18 02:46] LABS: BUN/CREATININE RATIO 15.3 (10-20); CALCIUM 8.7 mg/dl (8.5-10.1); CREATININE 0.98 mg/dl (0.60-1.20); MAGNESIUM 1.8 mg/dl (1.8-2.4); POTASSIUM 3.8 mmol/L (3.5-5.1)
[2016-07-18] MEDS: METOPROLOL TARTRATE 25 MG TAB PO SCH ×2 (07:55→19:47)
[2016-07-18] MEDS: ASPIRIN 81 MG ECTAB PO SCH (07:56)
[2016-07-18] MEDS: TOLTERODINE TARTRATE 1 MG TAB PO SCH ×2 (07:56→19:46)
[2016-07-18] MEDS: VITAMIN B COMPLEX TAB PO SCH (07:56)
[2016-07-18] MEDS: CALCIUM 600MG + VIT D 400 IU TAB PO SCH (07:56)
[2016-07-18] MEDS: INSULIN ASPART 100 UNITS/ML 3 ML PEN SC SCH ×4 (08:12→20:48)
--- NOTE | 2016-07-18 09:26 | PROGRESS NOTE ---
DATE: 07/18/2016 SUBJECTIVE: The patient is an 80-year-old female who was admitted with pneumonia and atrial fibrillation with RVR. Since yesterday, she is feeling much improved. She still has a productive cough. The patient remains in atrial fibrillation; however, on the telemetry, I think I see some P waves, so I think she is intermittently in sinus rhythm. Rates are controlled on diltiazem drip. OBJECTIVE: VITAL SIGNS: Blood pressure is 120/70 and pulse is regular at 100 beats per minute. GENERAL: She is afebrile. HEENT: She is normocephalic. Pupils are equal and reactive to light. Extraocular muscles are intact bilaterally. NECK: The neck veins are flat. Carotids have good upstrokes bilaterally without bruits. Thyroid is nonpalpable. RESPIRATORY: Breath sounds equal bilaterally. No rales or rhonchi. GASTROINTESTINAL: Abdomen is soft and nontender without organomegaly. EXTREMITIES: Free of edema, digit clubbing, or cyanosis. NEUROLOGIC: Grossly intact. SKIN: Warm to touch. LYMPH NODES: Negative to palpation. LABORATORY DATA: WBC count is 15 and hemoglobin is 11.9. Potassium is 3.8 and creatinine is 0.98. IMPRESSION: 1. Pneumonia. 2. Paroxysmal atrial fibrillation with rapid ventricular response. RECOMMENDATIONS: I would continue her current treatment, which includes heparin and diltiazem. As mentioned above, she seems to have intermittent sinus rhythm, so hopefully as her pneumonia is treated, she may convert spontaneously back to normal sinus rhythm.
[2016-07-18] MEDS ORDERED: LEVOFLOXACIN / D5W 500 MG in PREMIXED IN D5W 100 ML IV SCH (12:00)
--- NOTE | 2016-07-18 12:52 | Progress Note ---
Medicine Progress Note Date & Time of Visit: July 18, 2016 at 12:04. Subjective Pt was seen and examined Sitting in chair with no distress hoarseness voice due to the cough she said that she does not have any sore throat denies any chest pain, palpitation, dizziness and SOB Objective Last 8 Hrs Date Time Temp Pulse Resp B/P Pulse Ox O2 Delivery O2 Flow Rate FiO2 07/18/16 08:10 36.9 99 18 112/71 94 Room Air 07/18/16 08:00 Room Air Physical Exam: General- no acute distress, hoarse voice Head- atraumatic Eyes- PERRL, EOMI ENT- oropharynx clear Neck- supple, no JVD Lungs- No wheezing, no crackles Heart- irregular rhythm; no murmur Abdomen- normal bowel sounds, soft, nontender Extremities- no calf tenderness Neuro- alert, oriented x 3; PERRL, EOMI; no facial palsy Skin- warm & dry Laboratory Results: Last 24 Hours Test 07/17/16 16:11 07/17/16 19:00 07/17/16 19:44 07/17/16 19:54 Bedside Glucose 129 mg/dl 145 mg/dl Creatine Kinase MB Ratio Activated Partial Thromboplast Time 36.3 SECONDS Partial Thromboplastin Ratio 1.4 Creatine Kinase MB 2.5 ng/ml Troponin I 0.548 ng/ml Test 07/18/16 01:00 07/18/16 01:03 07/18/16 02:20 07/18/16 06:36 Creatine Kinase MB Ratio Creatine Kinase MB 2.1 ng/ml Troponin I 0.441 ng/ml White Blood Count 15.03 K/uL Red Blood Count 4.01 M/uL Hemoglobin 11.9 g/dL Hematocrit 35.1 % Mean Corpuscular Volume 87.5 fL Mean Corpuscular Hemoglobin 29.7 pg Mean Corpuscular Hemoglobin Concent 33.9 g/dl RDW Standard Deviation 42.5 fL RDW Coefficient of Variation 13.1 % Platelet Count 340 K/uL Mean Platelet Volume 9.0 fL Activated Partial Thromboplast Time 90.5 SECONDS Partial Thromboplastin Ratio 3.5 Sodium Level 137 mmol/L Potassium Level 3.8 mmol/L Chloride Level 105 mmol/L Carbon Dioxide Level 25 mmol/L Anion Gap 7.0 mmol/L Blood Urea Nitrogen 15 mg/dl Creatinine 0.98 mg/dl Est Creatinine Clear Calc Drug Dose 35.6 ml/min Estimated GFR () 62.7 Estimated GFR (Non- 54.1 BUN/Creatinine Ratio 15.3 Random Glucose 144 mg/dl Calcium Level 8.7 mg/dl Magnesium Level 1.8 mg/dl Bedside Glucose 135 mg/dl Test 07/18/16 09:09 07/18/16 11:05 Activated Partial Thromboplast Time 50.8 SECONDS Partial Thromboplastin Ratio 2.0 Bedside Glucose 148 mg/dl Assessment & Plan ATRIAL FIBRILLATION WITH RVR - Mostly triggers by URI - On Cardizem drip for rate control - Heart rate has been btw 100 to 120 - CHADS2 score 3 - Continue heparin drip - Not on anticoagulated due to unsteady gait / fall risk - Will defer decision of private watchman anticoagulation to cardiology; - Metoprolol increase to BID - echo pending ELEVATED TROPONIN - likely demand ischemia from tachycardia - Denies any chest pain - Troponin trending down - Echo pending - continue ASA, heparin drip, metoprolol GISELLE - likely due to acute illness - Decrease IVF - HCTZ and Losartan on hold - resolved HYPOKALEMIA - K 3.8 -Continue monitor electrolytes SINUSITIS - WBC trending down - Afebrile, blood cx pending - Continue levaquin DM - hgb a1c 10/2015 - hold metformin and utilize SSI while hospitalized HTN - BP in the low side - Continue IVF - Continue holding HCTZ and Losartan. DVT PROPHYLAXIS - on Heparin gtt CODE STATUS FULL CODE Consultants: Cardio Current Inpatient Medications: Current Inpatient Medications Medications (Trade) Dose Ordered Sig/[place] Route Start Time Stop Time Status Last Admin Dose Admin Acetaminophen (Tylenol Tab) 650 mg Q4H PRN PO 07/17/16 13:15 08/16/16 13:14 Ondansetron HCl (Zofran Inj) 4 mg Q6H PRN IV 07/17/16 13:15 08/16/16 13:14 Aspirin (Ecotrin Tab) 81 mg DAILY PO 07/18/16 09:00 08/17/16 08:59 07/18/16 07:56 81 MG Timolol Maleate (Timoptic 0.5% Oph Soln) 1 drops UD OP 07/17/16 13:30 08/16/16 13:29 Tolterodine Tartrate (Detrol Tab) 1 mg BID PO 07/17/16 21:00 08/16/16 20:59 07/18/16 07:56 1 MG Tramadol HCl (Ultram Tab) 50 mg Q6H PRN PO 07/17/16 13:30 08/16/16 13:29 Vitamin B Complex (Vitamin B Complex) 1 tab DAILY PO 07/18/16 09:00 08/17/16 08:59 07/18/16 07:56 1 TAB Calcium/Vitamin D (Caltrate Plus Tab) 1 tab DAILY PO 07/18/16 09:00 08/17/16 08:59 07/18/16 07:56 1 TAB EZETIMIBE (Zetia Tab) 10 mg PM PO 07/17/16 21:00 08/16/16 20:59 07/17/16 20:24 10 MG Insulin Aspart (novoLOG ASPART) SLIDING SCALE If C... ACHS SC 07/17/16 16:15 08/16/16 16:14 Glucose (Glucose 40% Gel) 15-30 GRAMS 15 GRAMS... UD PRN PO 07/17/16 14:15 08/16/16 14:14 Glucose (Glucose Chew Tab) 4-8 Tablets 4 Tabl... UD PRN PO 07/17/16 14:15 08/16/16 14:14 Dextrose (Dextrose 50% 50ML Syringe) 25-50ML OF 50% DW IV FOR... UD PRN IV 07/17/16 14:15 08/16/16 14:14 Glucagon (Glucagon Inj) 1 mg UD PRN SQ 07/17/16 14:15 08/16/16 14:14 Metoprolol Tartrate 25 mg 25 mg BID PO 07/17/16 21:00 08/16/16 20:59 07/18/16 07:55 25 MG Sodium Chloride 1,000 ml @ 50 mls/hr Q20H IV 07/17/16 15:30 08/16/16 15:29 07/18/16 01:08 100 MLS/HR Diltiazem HCl 125 mg/Dextrose 125 ml @ 0 mls/hr Q0M PRN IV 07/17/16 16:00 08/16/16 15:59 07/18/16 00:29 10 MLS/HR Heparin Sodium/ Dextrose 500 ml @ 21 mls/hr [id number] PRN IV 07/17/16 16:15 08/16/16 16:14 Levofloxacin/Prmx (Levaquin / D5W/ Premixed D5W) 150 ml @ 100 mls/hr Q2D@1200 IV 07/19/16 12:00 07/24/16 11:59
--- NOTE | 2016-07-18 13:29 | ECHOCARDIOGRAM REPORT ---
*NOTICE TO RECEIVING LIBERTARIAN AGENCY This information is strictly Confidential and protected under [place] law. [place] law prohibits you from making any further disclosure of this information unless further disclosure is expressly permitted by the written consent of the person to whom it pertains or is authorized by law. A general authorization for the release of medical or other information is not sufficient for this purpose. Hospital accepts no responsibility if the information is made available to any other person, INCLUDING THE PATIENT. Interpretation Summary * Name: TIANA CHOWDHURY Study Date: 07/18/2016 06:58 AM BP: 112/71 mmHg * Patient Location: C.2T\S\S230\S\2 HR: 99 * : 1935 (M/d/y) Gender: Female Height: 62 in * Age: 80 yrs Ethnicity: CA Weight: 132 lb * Ordering Physician: Jodi Rios * Referring Physician: Self, Referred * Performed By: Najma Durán RDCS * * Reason For Study: AFIB * BSA: 1.6 m2 * -- Conclusions -- * Pt. is in rapid atrial fib during the exam. * The left atrium is severely dilated. * The right atrium is severely dilated. * Left ventricular systolic function is mildly reduced. * Ejection Fraction = 45-50%. * The right ventricular systolic function is normal. * Mild aortic regurgitation. Procedure Details * A contrast injection of Definity was performed to improve assessment of LV function. * Contrast was injected into an intravenous site in the left arm. * One vial of Definity ultrasound contrast was diluted in normal saline to a total volume of 10 ml. A total of '2' ml of solution was administered during imaging. * Lot # [id number] of Definity utilized for procedure. * Expiration date AUG 23. * The attending nurse who injected the contrast agent was VIKAS ALVAREZ. Left Ventricle * The left ventricle is grossly normal size. * There is normal left ventricular wall thickness. * Ejection Fraction = 45-50%. * Left ventricular systolic function is mildly reduced. Right Ventricle * The right ventricle is normal size. * The right ventricular systolic function is normal. Atria * The left atrium is severely dilated. * The right atrium is severely dilated. * The interatrial septum is intact with no evidence for an atrial septal defect. Mitral Valve * The mitral valve is grossly normal. * Significant mitral regurgitation is absent. Tricuspid Valve * The tricuspid valve is not well visualized, but is grossly normal. * There is moderate tricuspid regurgitation. Aortic Valve * The aortic valve is tricuspid. The leaflet thickness if normal. There is no aortic stenosis, and no significant insufficiency. * Aortic stenosis is absent. * Mild aortic regurgitation. Pulmonic Valve * The pulmonic valve is not well visualized. Great Vessels * The aortic root and proximal ascending aorta are normal sized. Pericardium/Pleural * There is no pericardial effusion. MMode 2D Measurements and Calculations IVSd 1.5 cm IVSs 1.7 cm LVIDd 3.8 cm LVIDs 2.9 cm LVPWd 1.2 cm LVPWs 1.5 cm IVS/LVPW 1.2 FS 24.7 % EDV(Teich) 63.0 ml ESV(Teich) 31.7 ml EF(Teich) 49.7 % EDV(cubed) 56.0 ml ESV(cubed) 23.9 ml EF(cubed) 57.4 % % IVS thick 14.1 % % LVPW thick 22.0 % LV mass(C)d 182.8 grams LV mass(C)dI 114.1 grams/m\S\2 LV mass(C)s 163.1 grams LV mass(C)sI 101.8 grams/m\S\2 SV(Teich) 31.3 ml SI(Teich) 19.5 ml/m\S\2 SV(cubed) 32.1 ml SI(cubed) 20.1 ml/m\S\2 Ao root diam 2.7 cm Ao root area 5.6 cm\S\2 LA dimension 4.2 cm LA/Ao 1.6 LVAd ap4 25.5 cm\S\2 LVLd ap4 6.8 cm EDV(MOD-sp4) 77.5 ml EDV(sp4-el) 80.7 ml LVAs ap4 18.2 cm\S\2 LVLs ap4 6.3 cm ESV(MOD-sp4) 43.8 ml ESV(sp4-el) 44.2 ml EF(MOD-sp4) 43.5 % EF(sp4-el) 45.2 % LVAd ap2 26.5 cm\S\2 LVLd ap2 7.2 cm EDV(MOD-sp2) 79.5 ml EDV(sp2-el) 82.3 ml LVAs ap2 17.7 cm\S\2 LVLs ap2 6.2 cm ESV(MOD-sp2) 40.5 ml ESV(sp2-el) 42.7 ml EF(MOD-sp2) 49.0 % EF(sp2-el) 48.1 % LVLd %diff 5.5 % EDV(MOD-bp) 79.2 ml LVLs %diff -1.86 % ESV(MOD-bp) 42.0 ml EF(MOD-bp) 46.9 % SV(MOD-sp4) 33.7 ml SI(MOD-sp4) 21.0 ml/m\S\2 SV(MOD-sp2) 38.9 ml SI(MOD-sp2) 24.3 ml/m\S\2 SV(MOD-bp) 37.2 ml SI(MOD-bp) 23.2 ml/m\S\2 SV(sp4-el) 36.5 ml SI(sp4-el) 22.8 ml/m\S\2 SV(sp2-el) 39.6 ml SI(sp2-el) 24.7 ml/m\S\2 Doppler Measurements and Calculations MV E max henry 107.8 cm/sec MV dec time 0.25 sec Ao V2 max 113.4 cm/sec Ao max PG 5.1 mmHg Ao max PG (full) 2.3 mmHg LV V1 max PG 2.9 mmHg LV V1 max 84.8 cm/sec MR max henry 442.0 cm/sec MR max PG 78.1 mmHg TR max henry 274.4 cm/sec
[2016-07-18 15:21] LABS: URINE APPEARANCE CLEAR (CLEAR); URINE BILIRUBIN NEG (NEG); URINE COLOR YELLOW; URINE NITRITE NEG (NEG); URINE PH 5.5 (4.5-7.5); UROBILINOGEN NEG (NEG)
[2016-07-18 15:24] LABS: MANUAL MICROSCOPIC REQUIRED? NO; REVIEW REQ? NO
[2016-07-18] MEDS: HEPARIN 25,000 UNIT/500ML D5W 500 ML IV PRN (15:50)
[2016-07-18] MEDS: EZETIMIBE 10MG TAB PO SCH (19:47)
[2016-07-19] VITALS (10 sets, daily range): BP systolic 126–146; BP diastolic 66–82; PULSE 71–89; TEMP 36.3–36.8; O2SAT 91–97
[2016-07-19] MEDS: DILTIAZEM HCL INJ 125 MG in DEXTROSE 5% 100ML IV PRN (01:37)
[2016-07-19] MEDS: SODIUM CHLORIDE 0.9% 1000ML 1,000 ML IV SCH (03:52)
[2016-07-19 05:44] LABS: HEMATOCRIT 34.8 % (37-47); MEAN CELL VOLUME 86.8 fL (80-100); MEAN CORPUSCULAR HEMOGLOBIN 29.2 pg (25-34); MEAN CORPUSCULAR HGB CONC 33.6 g/dl (32-36); MEAN PLATELET VOLUME 9.4 fL (7.4-10.4); PLATELET COUNT 410 K/uL (130-400); RED BLOOD COUNT 4.01 M/uL (4.2-5.4); WHITE BLOOD COUNT 13.66 K/uL (4.8-10.8)
[2016-07-19 06:00] LABS: PARTIAL THROMBOPLASTIN RATIO 1.6
[2016-07-19 06:10] LABS: BUN/CREATININE RATIO 14.7 (10-20); CREATININE 0.69 mg/dl (0.60-1.20); POTASSIUM 3.6 mmol/L (3.5-5.1)
[2016-07-19] MEDS ORDERED: HEPARIN IV BOLUS 2,000 UNIT in SYRINGE 0 ML IV ONE (08:00)
[2016-07-19] MEDS: ASPIRIN 81 MG ECTAB PO SCH (08:06)
[2016-07-19] MEDS: METOPROLOL TARTRATE 25 MG TAB PO SCH ×2 (08:06→19:35)
[2016-07-19] MEDS: VITAMIN B COMPLEX TAB PO SCH (08:06)
[2016-07-19] MEDS: TOLTERODINE TARTRATE 1 MG TAB PO SCH ×2 (08:06→19:34)
[2016-07-19] MEDS: CALCIUM 600MG + VIT D 400 IU TAB PO SCH (08:06)
[2016-07-19] MEDS: INSULIN ASPART 100 UNITS/ML 3 ML PEN SC SCH ×4 (08:26→21:00)
[2016-07-19] MEDS ORDERED: POTASSIUM CHLORIDE 20 MEQ TABCR PO ONE (09:15)
[2016-07-19] MEDS ORDERED: FUROSEMIDE INJ 20 MG in SYRINGE 0 ML IV ONE (10:30)
[2016-07-19] MEDS ORDERED: DILTIAZEM HCL 60 MG TAB PO ONE (10:30)
[2016-07-19] MEDS ORDERED: POTASSIUM CHLORIDE 10 MEQ TABCR PO ONE (11:00)
--- NOTE | 2016-07-19 11:38 | PROGRESS NOTE ---
DATE: 07/19/2016 SUBJECTIVE: The patient is an 80-year-old female who was admitted with pneumonia and atrial fibrillation with RVR. She had an uneventful night. She still has a productive cough. The patient remains in atrial fibrillation, but her heart rate has been well controlled on a diltiazem infusion. OBJECTIVE: VITAL SIGNS: Blood pressure is 125/70. Pulse is irregular at 70 beats per minute. She is afebrile. HEENT: She is normocephalic. Pupils are equal and reactive to light. Extraocular muscles are intact bilaterally. NECK: The neck veins are flat. Carotids have good upstrokes bilaterally without bruits. Thyroid is nonpalpable. RESPIRATORY: Breath sounds are equal. There is wheezing on both left and right sides. No rales. GASTROINTESTINAL: Abdomen is soft, nontender without organomegaly. EXTREMITIES: Free of edema, digit clubbing, or cyanosis. NEUROLOGIC: Grossly intact. SKIN: Warm to touch. LYMPH NODES: Negative to palpation. LABORATORY DATA: Hemoglobin is 11.7, WBC count is 13.66. Potassium is 3.6, creatinine is 0.69. IMPRESSION: 1. Pneumonia. 2. Atrial fibrillation. PLAN AND RECOMMENDATIONS: I will switch the patient over to oral diltiazem today. I believe that we should diurese her a bit as I think she is volume overloaded. I will stop her IV fluids.
[2016-07-19] MEDS: LEVOFLOXACIN 750MG / D5W IV SCH (11:45)
[2016-07-19] MEDS: DILTIAZEM HCL 60 MG TAB PO SCH ×2 (13:33→19:34)
[2016-07-19] MEDS: HEPARIN 25,000 UNIT/500ML D5W 500 ML IV PRN (15:11)
--- NOTE | 2016-07-19 16:55 | Progress Note ---
Medicine Progress Note Date & Time of Visit: July 19, 2016 at 16:46. Subjective Pt was seen and examined Sitting in chair comfortable with no distress with son presents Pt said that her cough is slightly improved her hoarse voice slightly improved denies any chest pain, palpitation, dizziness and SOB Objective Last 8 Hrs Date Time Temp Pulse Resp B/P Pulse Ox O2 Delivery O2 Flow Rate FiO2 07/19/16 15:48 97 07/19/16 15:09 36.3 84 18 126/78 96 Room Air 07/19/16 11:32 36.6 71 20 133/66 94 Room Air Physical Exam: General- no acute distress, hoarse voice Head- atraumatic Eyes- PERRL, EOMI ENT- oropharynx clear Neck- supple, no JVD Lungs- No wheezing, no crackles Heart- irregular rhythm; no murmur Abdomen- normal bowel sounds, soft, nontender Extremities- no calf tenderness Neuro- alert, oriented x 3; PERRL, EOMI; no facial palsy Skin- warm & dry Laboratory Results: Last 24 Hours Test 07/18/16 19:58 07/19/16 05:20 07/19/16 06:25 07/19/16 14:39 Bedside Glucose 157 mg/dl 144 mg/dl White Blood Count 13.66 K/uL Red Blood Count 4.01 M/uL Hemoglobin 11.7 g/dL Hematocrit 34.8 % Mean Corpuscular Volume 86.8 fL Mean Corpuscular Hemoglobin 29.2 pg Mean Corpuscular Hemoglobin Concent 33.6 g/dl RDW Standard Deviation 42.4 fL RDW Coefficient of Variation 13.2 % Platelet Count 410 K/uL Mean Platelet Volume 9.4 fL Activated Partial Thromboplast Time 42.2 SECONDS 52.7 SECONDS Partial Thromboplastin Ratio 1.6 2.0 Sodium Level 138 mmol/L Potassium Level 3.6 mmol/L Chloride Level 105 mmol/L Carbon Dioxide Level 24 mmol/L Anion Gap 9.0 mmol/L Blood Urea Nitrogen 10 mg/dl Creatinine 0.69 mg/dl Est Creatinine Clear Calc Drug Dose 50.6 ml/min Estimated GFR () 94.6 Estimated GFR (Non- 81.6 BUN/Creatinine Ratio 14.7 Random Glucose 157 mg/dl Calcium Level 9.0 mg/dl Test 07/19/16 15:58 Bedside Glucose 113 mg/dl Assessment & Plan ATRIAL FIBRILLATION WITH RVR - Mostly triggers by URI - On Cardizem drip for rate control - Heart rate has been btw 100 to 120 - CHADS2 score 3 - Continue heparin drip - Not on anticoagulated due to unsteady gait / fall risk - Will 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 is in rapid atrial fib during the exam. * The left atrium is severely dilated. * The right atrium is severely dilated. * Left ventricular systolic function is mildly reduced. * Ejection Fraction = 45-50%. * The right ventricular systolic function is normal. * Mild aortic regurgitation. GISELLE - likely due to acute illness - D/c IVF - lasix 20mg x1 given for volume overload - HCTZ and Losartan on hold - resolved HYPOKALEMIA - K 3.6 today -K supplement today -Continue monitor electrolytes SINUSITIS - WBC trending down - Afebrile, blood cx pending - Continue levaquin DM - hgb a1c 10/2015 - hold metformin and utilize SSI while hospitalized HTN - Will resume HCTZ and Losartan in am if BP starts to elevate - Stable DVT PROPHYLAXIS - on Heparin drip CODE STATUS FULL CODE Consultants: Cardio Current Inpatient Medications: Current Inpatient Medications Medications (Trade) Dose Ordered Sig/[place]elaide Route Start Time Stop Time Status Last Admin Dose Admin Acetaminophen (Tylenol Tab) 650 mg Q4H PRN PO 07/17/16 13:15 08/16/16 13:14 Ondansetron HCl (Zofran Inj) 4 mg Q6H PRN IV 07/17/16 13:15 08/16/16 13:14 Aspirin (Ecotrin Tab) 81 mg DAILY PO 07/18/16 09:00 08/17/16 08:59 07/19/16 08:06 81 MG Timolol Maleate (Timoptic 0.5% Oph Soln) 1 drops UD OP 07/17/16 13:30 08/16/16 13:29 07/19/16 08:07 1 DROPS Tolterodine Tartrate (Detrol Tab) 1 mg BID PO 07/17/16 21:00 08/16/16 20:59 07/19/16 08:06 1 MG Tramadol HCl (Ultram Tab) 50 mg Q6H PRN PO 07/17/16 13:30 08/16/16 13:29 Vitamin B Complex (Vitamin B Complex) 1 tab DAILY PO 07/18/16 09:00 08/17/16 08:59 07/19/16 08:06 1 TAB Calcium/Vitamin D (Caltrate Plus Tab) 1 tab DAILY PO 07/18/16 09:00 08/17/16 08:59 07/19/16 08:06 1 TAB EZETIMIBE (Zetia Tab) 10 mg PM PO 07/17/16 21:00 08/16/16 20:59 07/18/16 19:47 10 MG Insulin Aspart (novoLOG ASPART) SLIDING SCALE If C... ACHS SC 07/17/16 16:15 08/16/16 16:14 07/19/16 13:32 2 UNITS Glucose (Glucose 40% Gel) 15-30 GRAMS 15 GRAMS... UD PRN PO 07/17/16 14:15 08/16/16 14:14 Glucose (Glucose Chew Tab) 4-8 Tablets 4 Tabl... UD PRN PO 07/17/16 14:15 08/16/16 14:14 Dextrose (Dextrose 50% 50ML Syringe) 25-50ML OF 50% DW IV FOR... UD PRN IV 07/17/16 14:15 08/16/16 14:14 Glucagon (Glucagon Inj) 1 mg UD PRN SQ 07/17/16 14:15 08/16/16 14:14 Metoprolol Tartrate 25 mg 25 mg BID PO 07/17/16 21:00 08/16/16 20:59 07/19/16 08:06 25 MG Heparin Sodium/ Dextrose 500 ml @ 23 mls/hr [id number] PRN IV 07/17/16 16:15 08/16/16 16:14 07/19/16 15:11 23 MLS/HR Levofloxacin/Prmx (Levaquin / D5W/ Premixed D5W) 150 ml @ 100 mls/hr Q2D@1200 IV 07/19/16 12:00 07/24/16 11:59 07/19/16 11:45 100 MLS/HR Diltiazem HCl (Cardizem Tab) 60 mg TID PO 07/19/16 14:00 08/18/16 13:59 07/19/16 13:33 60 MG
[2016-07-19] MEDS: EZETIMIBE 10MG TAB PO SCH (19:35)
[2016-07-20 00:01] VITALS: BP 136/72; PULSE 82; TEMP 36.6; O2SAT 94
[2016-07-20 04:00] VITALS: BP 145/91; PULSE 106; TEMP 36.8; O2SAT 93
[2016-07-20] MEDS ORDERED: METOPROLOL TARTRATE 1 MG/ML VIAL ONE (06:10)
[2016-07-20 06:44] LABS: HEMATOCRIT 37.7 % (37-47); MEAN CELL VOLUME 86.3 fL (80-100); MEAN CORPUSCULAR HEMOGLOBIN 29.7 pg (25-34); MEAN CORPUSCULAR HGB CONC 34.5 g/dl (32-36); MEAN PLATELET VOLUME 9.5 fL (7.4-10.4); PLATELET COUNT 432 K/uL (130-400); RED BLOOD COUNT 4.37 M/uL (4.2-5.4); WHITE BLOOD COUNT 14.25 K/uL (4.8-10.8)
[2016-07-20 06:50] LABS: PARTIAL THROMBOPLASTIN RATIO 1.7
[2016-07-20 07:11] LABS: BUN/CREATININE RATIO 11.2 (10-20); CALCIUM 9.1 mg/dl (8.5-10.1); CREATININE 0.67 mg/dl (0.60-1.20); MAGNESIUM 1.4 mg/dl (1.8-2.4); POTASSIUM 3.6 mmol/L (3.5-5.1)
[2016-07-20] MEDS ORDERED: HEPARIN IV BOLUS 2,000 UNIT in SYRINGE 0 ML IV ONE (07:45)
[2016-07-20] MEDS: HEPARIN 25,000 UNIT/500ML D5W 500 ML IV PRN ×2 (08:01→13:41)
[2016-07-20] MEDS: INSULIN ASPART 100 UNITS/ML 3 ML PEN SC SCH ×4 (08:06→21:00)
[2016-07-20] MEDS: MAGNESIUM SULFATE 1GM / D5W 1 GM in PREMIXED IN D5W 100 ML IV SCH ×3 (08:07→10:27)
[2016-07-20] MEDS: METOPROLOL TARTRATE 25 MG TAB PO SCH (08:07)
[2016-07-20] MEDS: DILTIAZEM HCL 60 MG TAB PO SCH ×3 (08:07→20:03)
[2016-07-20] MEDS: VITAMIN B COMPLEX TAB PO SCH (08:08)
[2016-07-20] MEDS: ASPIRIN 81 MG ECTAB PO SCH (08:08)
[2016-07-20] MEDS: TOLTERODINE TARTRATE 1 MG TAB PO SCH ×2 (08:08→20:03)
[2016-07-20] MEDS: CALCIUM 600MG + VIT D 400 IU TAB PO SCH (08:08)
[2016-07-20 08:47] VITALS: BP 135/87; PULSE 96; TEMP 36.7; O2SAT 96
[2016-07-20] MEDS ORDERED: METOPROLOL TARTRATE 25 MG TAB PO ONE (10:39)
[2016-07-20] MEDS ORDERED: METOPROLOL SUCC 25MG EXT REL TAB PO ONE (10:45)
[2016-07-20] MEDS ORDERED: LOSARTAN POTASSIUM 50 MG TAB PO ONE (11:06)
--- NOTE | 2016-07-20 11:09 | Progress Note ---
Medicine Progress Note Date & Time of Visit: July 20, 2016 at 10:51. Subjective Pt was seen and examined Lying in bed comfortable with no distress Pt said that her voice seems to get better slowly She said that she continues to cough and it is getting loose Denies any chest pain, palpitation, dizziness and SOB Objective Last 8 Hrs Date Time Temp Pulse Resp B/P Pulse Ox O2 Delivery O2 Flow Rate FiO2 07/20/16 08:47 36.7 96 20 135/87 96 Room Air 07/20/16 06:26 135 135/72 07/20/16 04:00 Room Air 07/20/16 04:00 36.8 106 20 145/91 93 Room Air Physical Exam: General- no acute distress, hoarse voice Head- atraumatic Eyes- PERRL, EOMI ENT- oropharynx clear Neck- supple, no JVD Lungs- No wheezing, no crackles Heart- irregular rhythm; no murmur Abdomen- normal bowel sounds, soft, nontender Extremities- no calf tenderness Neuro- alert, oriented x 3; PERRL, EOMI; no facial palsy Skin- warm & dry Laboratory Results: Last 24 Hours Test 07/19/16 14:39 07/19/16 15:58 07/19/16 20:00 07/20/16 06:03 Activated Partial Thromboplast Time 52.7 SECONDS 42.9 SECONDS Partial Thromboplastin Ratio 2.0 1.7 Bedside Glucose 113 mg/dl 123 mg/dl White Blood Count 14.25 K/uL Red Blood Count 4.37 M/uL Hemoglobin 13.0 g/dL Hematocrit 37.7 % Mean Corpuscular Volume 86.3 fL Mean Corpuscular Hemoglobin 29.7 pg Mean Corpuscular Hemoglobin Concent 34.5 g/dl RDW Standard Deviation 41.6 fL RDW Coefficient of Variation 13.0 % Platelet Count 432 K/uL Mean Platelet Volume 9.5 fL Sodium Level 136 mmol/L Potassium Level 3.6 mmol/L Chloride Level 101 mmol/L Carbon Dioxide Level 26 mmol/L Anion Gap 9.0 mmol/L Blood Urea Nitrogen 8 mg/dl Creatinine 0.67 mg/dl Est Creatinine Clear Calc Drug Dose 52.1 ml/min Estimated GFR () 95.5 Estimated GFR (Non- 82.4 BUN/Creatinine Ratio 11.2 Random Glucose 133 mg/dl Calcium Level 9.1 mg/dl Magnesium Level 1.4 mg/dl Test 07/20/16 06:27 Bedside Glucose 152 mg/dl Assessment & Plan ATRIAL FIBRILLATION WITH RVR - Mostly triggers by URI - On Cardizem drip for rate control - Heart rate has been btw 100 to 120 - CHADS2 score 3 - Continue heparin drip - Not on anticoagulated due to unsteady gait / fall risk - 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 is in rapid atrial fib during the exam. * The left atrium is severely dilated. * The right atrium is severely dilated. * Left ventricular systolic function is mildly reduced. * Ejection Fraction = 45-50%. * The right ventricular systolic function is normal. * Mild aortic regurgitation. GISELLE - likely due to acute illness - D/c IVF - lasix 20mg x1 given for volume overload - HCTZ and Losartan on hold - resolved ELECTROLYTES IMBALANCE -Mg 1.4, Mg replaced -K 3.6 -K supplement today -Continue monitor electrolytes SINUSITIS - WBC trending down - Afebrile, blood cx pending - Continue levaquin DM - hgb a1c 6/0 10/2015 - hold metformin and utilize SSI while hospitalized HTN - Losartan resume today - continue to hold HCTZ - Stable DVT PROPHYLAXIS - on Heparin drip CODE STATUS FULL CODE Consultants: Cardio Current Inpatient Medications: Current Inpatient Medications Medications (Trade) Dose Ordered Sig/[place] Route Start Time Stop Time Status Last Admin Dose Admin Acetaminophen (Tylenol Tab) 650 mg Q4H PRN PO 07/17/16 13:15 08/16/16 13:14 Ondansetron HCl (Zofran Inj) 4 mg Q6H PRN IV 07/17/16 13:15 08/16/16 13:14 Aspirin (Ecotrin Tab) 81 mg DAILY PO 07/18/16 09:00 08/17/16 08:59 07/20/16 08:08 81 MG Timolol Maleate (Timoptic 0.5% Oph Soln) 1 drops UD OP 07/17/16 13:30 08/16/16 13:29 07/19/16 08:07 1 DROPS Tolterodine Tartrate (Detrol Tab) 1 mg BID PO 07/17/16 21:00 08/16/16 20:59 07/20/16 08:08 1 MG Tramadol HCl (Ultram Tab) 50 mg Q6H PRN PO 07/17/16 13:30 08/16/16 13:29 Vitamin B Complex (Vitamin B Complex) 1 tab DAILY PO 07/18/16 09:00 08/17/16 08:59 07/20/16 08:08 1 TAB Calcium/Vitamin D (Caltrate Plus Tab) 1 tab DAILY PO 07/18/16 09:00 08/17/16 08:59 07/20/16 08:08 1 TAB EZETIMIBE (Zetia Tab) 10 mg PM PO 07/17/16 21:00 08/16/16 20:59 07/19/16 19:35 10 MG Insulin Aspart (novoLOG ASPART) SLIDING SCALE If C... ACHS SC 07/17/16 16:15 08/16/16 16:14 07/20/16 08:06 1 UNITS Glucose (Glucose 40% Gel) 15-30 GRAMS 15 GRAMS... UD PRN PO 07/17/16 14:15 08/16/16 14:14 Glucose (Glucose Chew Tab) 4-8 Tablets 4 Tabl... UD PRN PO 07/17/16 14:15 08/16/16 14:14 Dextrose (Dextrose 50% 50ML Syringe) 25-50ML OF 50% DW IV FOR... UD PRN IV 07/17/16 14:15 08/16/16 14:14 Glucagon 1 mg 1 mg UD PRN SQ 07/17/16 14:15 08/16/16 14:14 Heparin Sodium/ Dextrose 500 ml @ 25 mls/hr Q20H PRN IV 07/17/16 16:15 08/16/16 16:14 07/20/16 08:01 25 MLS/HR Levofloxacin/Prmx (Levaquin / D5W/ Premixed D5W) 150 ml @ 100 mls/hr Q2D@1200 IV 07/19/16 12:00 07/24/16 11:59 07/19/16 11:45 100 MLS/HR Diltiazem HCl (Cardizem Tab) 60 mg TID PO 07/19/16 14:00 07/20/16 23:59 07/20/16 08:07 60 MG Metoprolol Tartrate 2.5 mg 2.5 mg Q6H PRN IV 07/20/16 06:15 08/19/16 06:14 Magnesium Sulfate/ Prmx (Magnesium Sulfate/Premixed D5W) 100 ml @ 100 mls/hr TODAY@0800,0900,1000 IV 07/20/16 08:00 07/20/16 13:00 07/20/16 10:27 100 MLS/HR Metoprolol Succinate (Toprol Xl Tab) 50 mg BID PO 07/20/16 21:00 08/19/16 20:59 UNV Metoprolol Succinate (Toprol Xl Tab) 25 mg ONE ONCE PO 07/20/16 10:45 07/20/16 10:46 UNV Diltiazem HCl (Cardizem Cd Cap) 180 mg QAM PO 07/21/16 09:00 08/20/16 08:59 UNV
--- NOTE | 2016-07-20 11:14 | Cardiology Follow-Up ---
Subjective Subjective Date of Service: July 20, 2016. Pt evaluation today including: conversation w/ patient, physical exam, chart review, lab review, review of studies, conversation w/ performance management consultant, review of inpatient medication list Additional Details: Pt seen and examined, states that she is feeling better. Breathing is now easier. Denies cp, palpitations, lightheadedness or dizziness. Tele reviewed: afib overnight now with regular rate at 68 bpm ?sinus Problem List Medical Problems: (1) Chest pain, rule out acute myocardial infarction Status: Acute (2) Shortness of breath Status: Acute Review of Systems Respiratory: + cough, + dyspnea on exertion, + shortness of breath, + sputum Cardiac: No PND, No chest pain, No claudication, No edema, No orthopnea, No palpitations, No problem reported, No see HPI Objective Vital Signs Last Vital Signs Documentation Date Time Temp Pulse Resp B/P Pulse Ox O2 Delivery O2 Flow Rate FiO2 07/20/16 08:47 36.7 96 20 135/87 96 Room Air 07/18/16 12:32 2.0 Physical Exam: General Appearance: WD/WN, no apparent distress Eyes: bilateral eyes EOMI, bilateral eyes PERRL, bilateral eyes normal inspection ENT: normal ENT inspection, hearing grossly normal, pharynx normal Neck: supple, no adenopathy, thyroid normal, no JVD, no carotid bruits, trachea midline Respiratory/Chest: chest non-tender, normal breath sounds, no respiratory distress, no accessory muscle use, + rhonchi Cardiovascular: regular rate, rhythm, no edema, no JVD, + gallop/S4 Abdomen: normal bowel sounds, non tender, soft, no organomegaly, no pulsatile mass Extremities: normal inspection, no pedal edema, no calf tenderness Neurologic/Psychiatric: twister tender II-XII nml as tested, no motor/sensory deficits, alert, normal mood/affect, oriented x 3 Skin: normal color, warm/dry, no rash Lymphatic: no adenopathy Assessment and Plan 1. atrial fibrillation new onset unclear duration tolerating well rate is now regular with no clear P waves, suspect with start to see P waves soon cont cardizem for now, will switch to CD in the AM if she remains in afib will change metoprolol to succinate, on as outpatient not an anticoagulation candidate, patient with balance issues 2. pneumonia improving cont to monitor on tele
[2016-07-20 12:15] VITALS: BP 125/75; PULSE 69; TEMP 36.6; O2SAT 95
[2016-07-20 14:40] LABS: PARTIAL THROMBOPLASTIN RATIO 2.1
[2016-07-20 15:19] VITALS: BP 122/74; TEMP 36.5; O2SAT 99
[2016-07-20 19:56] VITALS: BP 145/82; PULSE 120; TEMP 36.4; O2SAT 92
[2016-07-20] MEDS: METOPROLOL SUCC 25MG EXT REL TAB PO SCH (20:02)
[2016-07-20] MEDS: EZETIMIBE 10MG TAB PO SCH (20:02)
[2016-07-20] MEDS: METOPROLOL TARTRATE 1 MG/ML VIAL IV PRN (20:43)
[2016-07-20] MEDS ORDERED: NURSING VERBAL MED ORDER ONE (20:45)
[2016-07-20] MEDS ORDERED: METOPROLOL SUCC 50MG EXT REL TAB PO SCH (21:00)
[2016-07-20] MEDS: BENZONATATE 100MG CAP PO PRN (21:36)
[2016-07-21] VITALS (8 sets, daily range): BP systolic 121–148; BP diastolic 62–83; PULSE 59–110; TEMP 36.6–36.9; O2SAT 94–98
[2016-07-21] MEDS: METOPROLOL TARTRATE 1 MG/ML VIAL IV PRN (03:01)
[2016-07-21] MEDS: BENZONATATE 100MG CAP PO PRN ×2 (03:06→22:34)
[2016-07-21] MEDS ORDERED: NURSING VERBAL MED ORDER ONE (05:00)
[2016-07-21] MEDS ORDERED: DILTIAZEM HCL 30 MG TAB PO STA (05:21)
[2016-07-21] MEDS: TOLTERODINE TARTRATE 1 MG TAB PO SCH ×2 (07:48→21:19)
[2016-07-21] MEDS: LOSARTAN POTASSIUM 50 MG TAB PO SCH (07:48)
[2016-07-21] MEDS: METOPROLOL SUCC 25MG EXT REL TAB PO SCH ×2 (07:48→21:19)
[2016-07-21] MEDS: VITAMIN B COMPLEX TAB PO SCH (07:49)
[2016-07-21] MEDS: DILTIAZEM HCL 180 MG CAPCR PO SCH (07:49)
[2016-07-21] MEDS: CALCIUM 600MG + VIT D 400 IU TAB PO SCH (07:49)
[2016-07-21] MEDS: ASPIRIN 81 MG ECTAB PO SCH (07:49)
[2016-07-21] MEDS: INSULIN ASPART 100 UNITS/ML 3 ML PEN SC SCH ×4 (07:51→21:00)
[2016-07-21] MEDS: HEPARIN 25,000 UNIT/500ML D5W 500 ML IV PRN (11:12)
[2016-07-21] MEDS ORDERED: METOPROLOL SUCC 25MG EXT REL TAB PO ONE (11:30)
[2016-07-21] MEDS: LEVOFLOXACIN 750MG / D5W IV SCH (12:07)
[2016-07-21] MEDS: MAGNESIUM SULFATE 1GM / D5W 1 GM in PREMIXED IN D5W 100 ML IV SCH ×2 (13:30→13:50)
--- NOTE | 2016-07-21 13:50 | Cardiology Follow-Up ---
Subjective Subjective Date of Service: July 21, 2016. Pt evaluation today including: conversation w/ patient, physical exam, chart review, lab review, review of studies, review of inpatient medication list Additional Details: Pt seen and examined, states that she feels fine. Anxious to be discharged. Denies cp, sob, palpitations, lightheadedness or dizziness. Tele reviewed: atrial fibrillation with rvr Problem List Medical Problems: (1) Chest pain, rule out acute myocardial infarction Status: Acute (2) Shortness of breath Status: Acute Review of Systems Respiratory: + cough, + dyspnea on exertion, + shortness of breath, + sputum Cardiac: No PND, No chest pain, No claudication, No edema, No orthopnea, No palpitations, No problem reported, No see HPI Objective Vital Signs Last Vital Signs Documentation Date Time Temp Pulse Resp B/P Pulse Ox O2 Delivery O2 Flow Rate FiO2 07/21/16 12:00 96 Room Air 07/21/16 10:32 36.8 110 18 121/73 07/20/16 23:59 2.0 Physical Exam: General Appearance: WD/WN, no apparent distress Eyes: bilateral eyes EOMI, bilateral eyes PERRL, bilateral eyes normal inspection ENT: normal ENT inspection, hearing grossly normal, pharynx normal Neck: supple, no adenopathy, thyroid normal, no JVD, no carotid bruits, trachea midline Respiratory/Chest: chest non-tender, normal breath sounds, no respiratory distress, no accessory muscle use, + rhonchi Cardiovascular: no edema, no JVD, + tachycardia, + gallop/S4, + irregularly irregular Abdomen: normal bowel sounds, non tender, soft, no organomegaly, no pulsatile mass Extremities: normal inspection, no pedal edema, no calf tenderness Neurologic/Psychiatric: 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 atrial fibrillation new onset unclear duration tolerating well rates became rapid overnight with episodes of bradycardia as well would like to avoid tachy rahul episodes will uptitrate toprol gently cont current cardizem dose not an anticoagulation candidate, patient with balance issues 2. pneumonia improving cont to monitor on tele ok to d/c this afternoon if rates improved.
--- NOTE | 2016-07-21 15:18 | Progress Note ---
Internal Med Progress Note Date of Service: July 21, 2016. Provider Documentation: SUBJECTIVE: The patient was seen and examined Denies any complaints No Palpitation ,CP or SOB OBJECTIVE: Vital Signs-as noted below Exam: General-No distress at rest Eyes-normal ENT-normal Neck-Supple Lungs-Clear to ausucltate bilaterally Heart-Irregular,2/6 ESM precordial area Abdomen-Benign,no masses,bowel sound present Extremities-No edema Neuro-AAOx3 Lab data as noted below. ASSESSMENT & PLAN: ATRIAL FIBRILLATION WITH RVR - Was on Cardizem drip for rate control and later on changed to oral - Started on BB and dose increased gradually - CHADS2 score 3 - Has been on heparin drip - Not on anticoagulated due to unsteady gait / fall risk Appreciate Cardiology i9nput Rate is not yet controlled PT/OT evaluation Likely discharge tomorrow ELEVATED TROPONIN - likely demand ischemia from tachycardia - Denies any chest pain -no evidence of ACS Echo showed * Pt. is in rapid atrial fib during the exam. * The left atrium is severely dilated. * The right atrium is severely dilated. * Left ventricular systolic function is mildly reduced. * Ejection Fraction = 45-50%. * The right ventricular systolic function is normal. * Mild aortic regurgitation. GISELLE - likely due to acute illness and dehydration - HCTZ and Losartan on hold - Kidney function normalized ELECTROLYTES IMBALANCE Supplement and recheck SINUSITIS - WBC trending down - Afebrile, blood cx pending - Continue Levaquin for a total of 10 days DM - hgb a1c 6/0 10/2015 - hold metformin and utilize SSI while hospitalized HTN - Losartan resumed - continue to hold HCTZ - Stable DVT PROPHYLAXIS - on Heparin drip CODE STATUS FULL CODE Consultants: Cardio Disposition PT/OT Likely home tomorrow Discussed with the Daughter Vital Signs: Date Time Temp Pulse Resp B/P Pulse Ox O2 Delivery O2 Flow Rate FiO2 07/21/16 12:00 96 Room Air 07/21/16 10:32 36.8 110 18 121/73 96 Room Air 07/21/16 08:00 Room Air 07/21/16 07:38 36.9 59 16 123/69 95 Room Air 07/21/16 04:00 Room Air 07/21/16 04:00 36.7 104 22 143/62 94 Room Air 07/21/16 03:01 116 07/21/16 00:00 36.8 95 18 148/77 94 Room Air 07/20/16 23:59 Room Air 2.0 07/20/16 20:43 143 145/82 07/20/16 20:00 Room Air 07/20/16 19:56 36.4 120 14 145/82 92 Room Air 07/20/16 16:00 Room Air 07/20/16 15:19 36.5 18 122/74 99 Room Air Lab Results: Results Past 24 Hours Test 07/20/16 16:30 07/20/16 20:34 07/21/16 05:23 07/21/16 06:26 Range/Units Bedside Glucose 99 132 155 70-90 mg/dl Activated Partial Thromboplast Time 51.4 21.0-31.0 SECONDS Partial Thromboplastin Ratio 2.0
[2016-07-21] MEDS: EZETIMIBE 10MG TAB PO SCH (21:19)
--- NOTE | 2016-07-21 22:11 | DIAGNOSTIC IMAGING REPORT ---
CT HEAD WITHOUT CONTRAST (CT) CLINICAL HISTORY: Acute change in mental status COMPARISON STUDY: No previous studies for comparison. TECHNIQUE: Axial CT of the brain is performed from the vertex to the skull base. IV contrast was not administered for this examination. CT DOSE: 537.48 mGy.cm FINDINGS: No intra or extra-axial mass lesions are visualized. There is no CT evidence of acute cortical infarction. There is no evidence of midline shift. There is no acute hemorrhage. No calvarial fractures are visualized. There are patchy white matter hypodensities likely on a small vessel basis. There is no evidence of pathologic ventricular dilatation. There are bilateral maxillary sinus air-fluid levels. There are sphenoid sinus air-fluid levels. Multiple ethmoid air cells are opacified. There is frontal sinus mucosal thickening. IMPRESSION: 1. Pansinus disease 2. Otherwise no acute intracranial findings Electronically signed by: Ignacio Kahn M.D. 07/21/2016 10:09 PM Dictated Date/Time: 07/21/2016 10:08 PM
[2016-07-21 22:24] LABS: BUN/CREATININE RATIO 14.2 (10-20); CREATININE 0.73 mg/dl (0.60-1.20); MAGNESIUM 2.3 mg/dl (1.8-2.4); POTASSIUM 3.6 mmol/L (3.5-5.1)
[2016-07-21] MEDS ORDERED: OLANZAPINE 2.5 MG TAB PO STA (22:26)
[2016-07-22] VITALS (7 sets, daily range): BP systolic 111–148; BP diastolic 63–93; PULSE 71–126; TEMP 36.6–37.2; O2SAT 95–98
[2016-07-22] MEDS: HEPARIN 25,000 UNIT/500ML D5W 500 ML IV PRN (05:30)
[2016-07-22 05:47] LABS: HEMATOCRIT 34.7 % (37-47); MEAN CELL VOLUME 87.8 fL (80-100); MEAN CORPUSCULAR HEMOGLOBIN 29.4 pg (25-34); MEAN CORPUSCULAR HGB CONC 33.4 g/dl (32-36); MEAN PLATELET VOLUME 8.9 fL (7.4-10.4); PLATELET COUNT 489 K/uL (130-400); RED BLOOD COUNT 3.95 M/uL (4.2-5.4); WHITE BLOOD COUNT 11.93 K/uL (4.8-10.8)
[2016-07-22 06:17] LABS: BUN/CREATININE RATIO 10.8 (10-20); CALCIUM 8.6 mg/dl (8.5-10.1); CREATININE 0.67 mg/dl (0.60-1.20); MAGNESIUM 2.1 mg/dl (1.8-2.4); PHOSPHORUS 3.7 mg/dl (2.5-4.9); POTASSIUM 3.5 mmol/L (3.5-5.1)
[2016-07-22 06:22] LABS: PARTIAL THROMBOPLASTIN RATIO 2.2
[2016-07-22] MEDS: CALCIUM 600MG + VIT D 400 IU TAB PO SCH (07:44)
[2016-07-22] MEDS: ASPIRIN 81 MG ECTAB PO SCH (07:45)
[2016-07-22] MEDS: METOPROLOL SUCC 25MG EXT REL TAB PO SCH (07:45)
[2016-07-22] MEDS: LOSARTAN POTASSIUM 50 MG TAB PO SCH (07:45)
[2016-07-22] MEDS: DILTIAZEM HCL 180 MG CAPCR PO SCH (07:45)
[2016-07-22] MEDS: VITAMIN B COMPLEX TAB PO SCH (07:46)
[2016-07-22] MEDS: INSULIN ASPART 100 UNITS/ML 3 ML PEN SC SCH ×4 (07:50→21:00)
[2016-07-22] MEDS: LEVOFLOXACIN 500 MG TAB PO SCH (10:04)
[2016-07-22] MEDS ORDERED: METOPROLOL SUCC 25MG EXT REL TAB PO ONE (10:30)
--- NOTE | 2016-07-22 11:14 | Cardiology Follow-Up ---
Subjective Subjective Date of Service: July 22, 2016. Pt evaluation today including: conversation w/ patient, physical exam, chart review, lab review, review of studies, review of inpatient medication list Additional Details: Pt seen and examined, without complaint. Reports of confusion overnight, does appear somewhat confused today to me as well. Denies cp, sob, palpitations, lightheadedness or dizziness. Tele reviewed: afib, rates back up into 100's overnight Problem List Medical Problems: (1) Chest pain, rule out acute myocardial infarction Status: Acute (2) Shortness of breath Status: Acute Review of Systems Respiratory: + cough, + dyspnea on exertion, + shortness of breath, + sputum Cardiac: No PND, No chest pain, No claudication, No edema, No orthopnea, No palpitations, No problem reported, No see HPI Objective Vital Signs Last Vital Signs Documentation Date Time Temp Pulse Resp B/P Pulse Ox O2 Delivery O2 Flow Rate FiO2 07/22/16 11:05 36.8 102 20 130/77 97 Room Air 07/20/16 23:59 2.0 Physical Exam: General Appearance: WD/WN, no apparent distress Eyes: bilateral eyes EOMI, bilateral eyes PERRL, bilateral eyes normal inspection ENT: normal ENT inspection, hearing grossly normal, pharynx normal Neck: supple, no adenopathy, thyroid normal, no JVD, no carotid bruits, trachea midline Respiratory/Chest: chest non-tender, normal breath sounds, no respiratory distress, no accessory muscle use, + rhonchi Cardiovascular: no edema, no JVD, + tachycardia, + gallop/S4, + irregularly irregular Abdomen: normal bowel sounds, non tender, soft, no organomegaly, no pulsatile mass Extremities: normal inspection, no pedal edema, no calf tenderness 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 atrial fibrillation new onset unclear duration tolerating well rates became rapid overnight after metoprolol dose was not increased would like to avoid tachy rahul episodes rates were well controlled with metoprolol succinate 50mg bid, will restart cont current cardizem dose not an anticoagulation candidate, patient with balance issues 2. pneumonia improving 3. confusion likely recommend discharge cont to monitor on tele ok to d/c from cardiac standpoint
--- NOTE | 2016-07-22 14:50 | Progress Note ---
Internal Med Progress Note Date of Service: July 22, 2016. Provider Documentation: SUBJECTIVE: The patient was seen and examined Denies any complaints No Palpitation ,CP or SOB Still having significant Tachycardia without any symptoms OBJECTIVE: Vital Signs-as noted below Exam: General-No distress at rest Eyes-normal ENT-normal Neck-Supple Lungs-Clear to ausucltate bilaterally Heart-Irregular,2/6 ESM precordial area Abdomen-Benign,no masses,bowel sound present Extremities-No edema Neuro-AAOx3 Lab data as noted below. ASSESSMENT & PLAN: ATRIAL FIBRILLATION WITH RVR - Was on Cardizem drip for rate control and later on changed to oral - Started on BB and dose increased gradually - CHADS2 score 3 - Has been on heparin drip - Not on anticoagulated due to unsteady gait / fall risk Appreciate Cardiology i9nput Rate is not yet controlled PT/OT evaluation-no home health Persistent Tachycardia-BB increased Rate is down following that Better to go home tomorrow when will have more time to observe ELEVATED TROPONIN - likely demand ischemia from tachycardia - Denies any chest pain -no evidence of ACS Echo showed * Pt. is in rapid atrial fib during the exam. * The left atrium is severely dilated. * The right atrium is severely dilated. * Left ventricular systolic function is mildly reduced. * Ejection Fraction = 45-50%. * The right ventricular systolic function is normal. * Mild aortic regurgitation. GISELLE - likely due to acute illness and dehydration - HCTZ and Losartan on hold - Kidney function normalized ELECTROLYTES IMBALANCE Supplement and recheck SINUSITIS - WBC trending down - Afebrile, blood cx pending - Continue Levaquin for a total of 10 days DM - hgb a1c 6/0 10/2015 - hold metformin and utilize SSI while hospitalized HTN - Losartan resumed - continue to hold HCTZ - Stable DVT PROPHYLAXIS - on Heparin drip CODE STATUS FULL CODE Consultants: Cardio Disposition PT/OT Likely home tomorrow Discussed with the Daughter Vital Signs: Date Time Temp Pulse Resp B/P Pulse Ox O2 Delivery O2 Flow Rate FiO2 07/22/16 12:00 Room Air 07/22/16 11:05 36.8 102 20 130/77 97 Room Air 07/22/16 08:00 Room Air 07/22/16 07:28 36.9 126 20 148/93 95 Room Air 07/22/16 04:00 36.7 97 22 134/77 95 Room Air 07/22/16 04:00 Room Air 07/22/16 00:01 36.6 108 18 122/69 96 Room Air 07/21/16 23:59 Room Air 07/21/16 20:00 Room Air 07/21/16 19:17 36.6 72 14 132/83 98 Room Air 07/21/16 16:00 95 Room Air 07/21/16 15:53 36.6 84 14 124/79 97 Room Air Lab Results: Results Past 24 Hours Test 07/21/16 16:06 07/21/16 20:08 07/21/16 21:55 07/22/16 05:30 Range/Units Bedside Glucose 130 171 70-90 mg/dl Sodium Level 136 140 136-145 mmol/L Potassium Level 3.6 3.5 3.5-5.1 mmol/L Chloride Level 98 103 98-107 mmol/L Carbon Dioxide Level 30 32 21-32 mmol/L Anion Gap 8.0 5.0 3-11 mmol/L Blood Urea Nitrogen 10 7 7-18 mg/dl Creatinine 0.73 0.67 0.60-1.20 mg/dl Est Creatinine Clear Calc Drug Dose 47.8 56.7 ml/min Estimated GFR () 89.5 95.5 Estimated GFR (Non- 77.2 82.4 BUN/Creatinine Ratio 14.2 10.8 10-20 Random Glucose 132 127 70-99 mg/dl Calcium Level 9.0 8.6 8.5-10.1 mg/dl Magnesium Level 2.3 2.1 1.8-2.4 mg/dl White Blood Count 11.93 4.8-10.8 K/uL Red Blood Count 3.95 4.2-5.4 M/uL Hemoglobin 11.6 12.0-16.0 g/dL Hematocrit 34.7 37-47 % Mean Corpuscular Volume 87.8 80-100 fL Mean Corpuscular Hemoglobin 29.4 25-34 pg Mean Corpuscular Hemoglobin Concent 33.4 32-36 g/dl RDW Standard Deviation 42.5 36.4-46.3 fL RDW Coefficient of Variation 13.1 11.5-14.5 % Platelet Count 489 130-400 K/uL Mean Platelet Volume 8.9 7.4-10.4 fL Activated Partial Thromboplast Time 56.0 21.0-31.0 SECONDS Partial Thromboplastin Ratio 2.2 Phosphorus Level 3.7 2.5-4.9 mg/dl Test 07/22/16 06:22 07/22/16 11:17 Range/Units Bedside Glucose 120 107 70-90 mg/dl
[2016-07-22] MEDS: METOPROLOL SUCC 50MG EXT REL TAB PO SCH (21:24)
[2016-07-22] MEDS: EZETIMIBE 10MG TAB PO SCH (21:24)
[2016-07-23] MEDS: HEPARIN 25,000 UNIT/500ML D5W 500 ML IV PRN (02:48)
[2016-07-23 04:18] VITALS: BP 152/84; PULSE 94; TEMP 36.8; O2SAT 95
[2016-07-23 05:59] LABS: PARTIAL THROMBOPLASTIN RATIO 2.6
[2016-07-23 06:06] LABS: BUN/CREATININE RATIO 14.3 (10-20); CALCIUM 8.9 mg/dl (8.5-10.1); CREATININE 0.76 mg/dl (0.60-1.20); MAGNESIUM 1.9 mg/dl (1.8-2.4); PHOSPHORUS 3.3 mg/dl (2.5-4.9); POTASSIUM 3.6 mmol/L (3.5-5.1)
[2016-07-23] MEDS: METOPROLOL TARTRATE 1 MG/ML VIAL IV PRN (06:06)
[2016-07-23] MEDS: ASPIRIN 81 MG ECTAB PO SCH (07:31)
[2016-07-23] MEDS: LOSARTAN POTASSIUM 50 MG TAB PO SCH (07:31)
[2016-07-23] MEDS: METOPROLOL SUCC 50MG EXT REL TAB PO SCH ×2 (07:31→20:38)
[2016-07-23] MEDS: VITAMIN B COMPLEX TAB PO SCH (07:31)
[2016-07-23] MEDS: CALCIUM 600MG + VIT D 400 IU TAB PO SCH (07:32)
[2016-07-23] MEDS: DILTIAZEM HCL 180 MG CAPCR PO SCH (07:32)
[2016-07-23 07:51] VITALS: BP 140/88; PULSE 128; TEMP 36.9; O2SAT 95
[2016-07-23] MEDS ORDERED: POTASSIUM CHLORIDE 10 MEQ TABCR PO STA (08:11)
[2016-07-23] MEDS ORDERED: DIGOXIN IV 250 MCG in SYRINGE 9 ML IV ONE (08:45)
[2016-07-23] MEDS: INSULIN ASPART 100 UNITS/ML 3 ML PEN SC SCH ×4 (08:58→20:00)
--- NOTE | 2016-07-23 09:06 | Cardiology Follow-Up ---
Subjective Subjective Date of Service: July 23, 2016. Pt evaluation today including: conversation w/ patient, physical exam, chart review, lab review, review of studies, review of inpatient medication list Additional Details: Pt seen and examined, more tachycardic overnight but completely asymptomatic. States that she feels fine. Denies cp, sob, palpitations, lightheadedness or dizziness. Tele reviewed: afib with rvr into 150's Problem List Medical Problems: (1) Chest pain, rule out acute myocardial infarction Status: Acute (2) Shortness of breath Status: Acute Review of Systems Respiratory: + cough, + dyspnea on exertion, + shortness of breath, + sputum Cardiac: No PND, No chest pain, No claudication, No edema, No orthopnea, No palpitations, No problem reported, No see HPI Objective Vital Signs Last Vital Signs Documentation Date Time Temp Pulse Resp B/P Pulse Ox O2 Delivery O2 Flow Rate FiO2 07/23/16 08:53 134 07/23/16 07:51 36.9 18 140/88 95 07/23/16 04:18 Room Air 07/20/16 23:59 2.0 Physical Exam: General Appearance: WD/WN, no apparent distress Eyes: bilateral eyes EOMI, bilateral eyes PERRL, bilateral eyes normal inspection ENT: normal ENT inspection, hearing grossly normal, pharynx normal Neck: supple, no adenopathy, thyroid normal, no JVD, no carotid bruits, trachea midline Respiratory/Chest: chest non-tender, normal breath sounds, no respiratory distress, no accessory muscle use, + rhonchi Cardiovascular: no edema, no JVD, + tachycardia, + gallop/S4, + irregularly irregular Abdomen: normal bowel sounds, non tender, soft, no organomegaly, no pulsatile mass Extremities: normal inspection, no pedal edema, no calf tenderness 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 atrial fibrillation new onset unclear duration tolerating well rates became rapid overnight once again despite appropriate meds will dig load now cont current metoprolol and cardizem doses may increase cardizem as well not an anticoagulation candidate, patient with balance issues 2. pneumonia improving 3. confusion likely sundown recommend discharge cont to monitor on tele
[2016-07-23 10:45] VITALS: BP 131/79; PULSE 80; TEMP 36.7; O2SAT 96
[2016-07-23] MEDS ORDERED: LORAZEPAM 0.5 MG TAB PO STA (11:08)
[2016-07-23] MEDS ORDERED: LORAZEPAM 0.5 MG TAB PO PRN (11:15)
[2016-07-23] MEDS: LEVOFLOXACIN 500 MG TAB PO SCH (12:14)
[2016-07-23] MEDS ORDERED: NURSING VERBAL MED ORDER ONE (12:45)
[2016-07-23 15:20] VITALS: BP 147/78; PULSE 80; TEMP 36.8; O2SAT 97
--- NOTE | 2016-07-23 17:03 | Progress Note ---
Internal Med Progress Note Date of Service: July 23, 2016. Provider Documentation: SUBJECTIVE: The patient was seen and examined Still having significant Tachycardia without any symptoms Happened last night Very anxious to get out of the hospital Got 1 dose of Digoxin -if Heart rate is stable -discharge tomorrow OBJECTIVE: Vital Signs-as noted below Exam: General-No distress at rest Eyes-normal ENT-normal Neck-Supple Lungs-Clear to ausucltate bilaterally Heart-Irregular,2/6 ESM precordial area Abdomen-Benign,no masses,bowel sound present Extremities-No edema Neuro-AAOx3 Lab data as noted below. ASSESSMENT & PLAN: ATRIAL FIBRILLATION WITH RVR -rete is not yet controlled - Was on Cardizem drip for rate control and later on changed to oral - Started on BB and dose increased gradually - CHADS2 score 3 - Has been on heparin drip - Not on anticoagulated due to unsteady gait / fall risk Appreciate Cardiology i9nput Rate is not yet controlled PT/OT evaluation-no home health Persistent Tachycardia-BB increased Rate is down following that Better to go home tomorrow when will have more time to observe Received 1 dose of digoxin this morning and may get another dose IV if needed tonight If the rate remains stable -may be discharged in AM Adjust medications on discharge as per cardiology ELEVATED TROPONIN - likely demand ischemia from tachycardia - Denies any chest pain -no evidence of ACS Echo showed * Pt. is in rapid atrial fib during the exam. * The left atrium is severely dilated. * The right atrium is severely dilated. * Left ventricular systolic function is mildly reduced. * Ejection Fraction = 45-50%. * The right ventricular systolic function is normal. * Mild aortic regurgitation. GISELLE - likely due to acute illness and dehydration - HCTZ and Losartan on hold - Kidney function normalized ELECTROLYTES IMBALANCE Supplement and recheck Corrected SINUSITIS - WBC trending down - Afebrile, blood cx pending - Continue Levaquin for a total of 10 days DM - hgb a1c 6/0 10/2015 - hold metformin and utilize SSI while hospitalized HTN - Losartan resumed - continue to hold HCTZ - Stable DVT PROPHYLAXIS - on Heparin drip CODE STATUS FULL CODE Consultants: Cardio Disposition PT/OT Likely home tomorrow Discussed with the Daughter Vital Signs: Date Time Temp Pulse Resp B/P Pulse Ox O2 Delivery O2 Flow Rate FiO2 07/23/16 15:20 36.8 80 20 147/78 97 Room Air 07/23/16 12:00 Room Air 07/23/16 10:45 36.7 80 18 131/79 96 Room Air 07/23/16 08:53 134 07/23/16 08:00 Room Air 07/23/16 07:51 36.9 128 18 140/88 95 07/23/16 06:06 136 144/90 07/23/16 04:18 36.8 94 18 152/84 95 Room Air 07/23/16 04:02 Room Air 07/23/16 00:00 Room Air 07/22/16 23:53 36.7 120 18 125/82 95 Room Air 07/22/16 20:00 Room Air 07/22/16 19:32 36.8 114 22 111/63 98 Room Air Lab Results: Results Past 24 Hours Test 07/22/16 20:17 07/23/16 05:05 07/23/16 06:36 07/23/16 10:55 Range/Units Bedside Glucose 112 149 132 70-90 mg/dl Activated Partial Thromboplast Time 67.6 21.0-31.0 SECONDS Partial Thromboplastin Ratio 2.6 Sodium Level 142 136-145 mmol/L Potassium Level 3.6 3.5-5.1 mmol/L Chloride Level 105 98-107 mmol/L Carbon Dioxide Level 30 21-32 mmol/L Anion Gap 7.0 3-11 mmol/L Blood Urea Nitrogen 11 7-18 mg/dl Creatinine 0.76 0.60-1.20 mg/dl Est Creatinine Clear Calc Drug Dose 50.0 ml/min Estimated GFR () 85.3 Estimated GFR (Non- 73.6 BUN/Creatinine Ratio 14.3 10-20 Random Glucose 138 70-99 mg/dl Calcium Level 8.9 8.5-10.1 mg/dl Phosphorus Level 3.3 2.5-4.9 mg/dl Magnesium Level 1.9 1.8-2.4 mg/dl Test 07/23/16 15:49 Range/Units Bedside Glucose 98 70-90 mg/dl
[2016-07-23] MEDS: EZETIMIBE 10MG TAB PO SCH (20:38)
[2016-07-23 22:00] VITALS: BP 152/81; PULSE 83; TEMP 36.7; O2SAT 97
[2016-07-23 23:17] VITALS: BP 161/77; PULSE 101; TEMP 36.6; O2SAT 95
[2016-07-24] VITALS (7 sets, daily range): BP systolic 131–167; BP diastolic 76–83; PULSE 67–86; TEMP 36.5–36.9; O2SAT 96–97
[2016-07-24] MEDS ORDERED: METOPROLOL SUCC 50MG EXT REL TAB PO ONE (03:58)
[2016-07-24 05:41] LABS: MEAN CELL VOLUME 89.4 fL (80-100); MEAN CORPUSCULAR HEMOGLOBIN 29.6 pg (25-34); MEAN CORPUSCULAR HGB CONC 33.2 g/dl (32-36); MEAN PLATELET VOLUME 8.7 fL (7.4-10.4); PLATELET COUNT 562 K/uL (130-400); RED BLOOD COUNT 4.25 M/uL (4.2-5.4); WHITE BLOOD COUNT 8.12 K/uL (4.8-10.8)
[2016-07-24 06:13] LABS: CALCIUM 9.1 mg/dl (8.5-10.1); CREATININE 0.69 mg/dl (0.60-1.20); MAGNESIUM 1.8 mg/dl (1.8-2.4); POTASSIUM 4.1 mmol/L (3.5-5.1)
[2016-07-24] MEDS: VITAMIN B COMPLEX TAB PO SCH (07:54)
[2016-07-24] MEDS: ASPIRIN 81 MG ECTAB PO SCH (07:54)
[2016-07-24] MEDS: CALCIUM 600MG + VIT D 400 IU TAB PO SCH (07:54)
[2016-07-24] MEDS: LOSARTAN POTASSIUM 50 MG TAB PO SCH (07:54)
[2016-07-24] MEDS: DILTIAZEM HCL 180 MG CAPCR PO SCH (07:55)
[2016-07-24] MEDS: INSULIN ASPART 100 UNITS/ML 3 ML PEN SC SCH ×3 (07:56→16:15)
--- NOTE | 2016-07-24 08:30 | Cardiology Follow-Up ---
Subjective Subjective Date of Service: July 24, 2016. Pt evaluation today including: conversation w/ patient, physical exam, chart review, lab review, review of studies, review of inpatient medication list Additional Details: Pt seen and examined, wants to go home. Denies cp, sob, palpitations, lightheadedness or dizziness. Tele reviewed: converted to sinus rhythm overnight. Problem List Medical Problems: (1) Chest pain, rule out acute myocardial infarction Status: Acute (2) Shortness of breath Status: Acute Review of Systems Respiratory: + cough, + dyspnea on exertion, + shortness of breath, + sputum Cardiac: No PND, No chest pain, No claudication, No edema, No orthopnea, No palpitations, No problem reported, No see HPI Objective Vital Signs Last Vital Signs Documentation Date Time Temp Pulse Resp B/P Pulse Ox O2 Delivery O2 Flow Rate FiO2 07/24/16 08:14 36.7 77 18 149/80 96 07/24/16 04:01 Room Air 07/20/16 23:59 2.0 Physical Exam: General Appearance: WD/WN, no apparent distress Eyes: bilateral eyes EOMI, bilateral eyes PERRL, bilateral eyes normal inspection ENT: normal ENT inspection, hearing grossly normal, pharynx normal Neck: supple, no adenopathy, thyroid normal, no JVD, no carotid bruits, trachea midline Respiratory/Chest: chest non-tender, normal breath sounds, no respiratory distress, no accessory muscle use, + rhonchi Cardiovascular: no edema, no JVD, + tachycardia, + gallop/S4, + irregularly irregular Abdomen: normal bowel sounds, non tender, soft, no organomegaly, no pulsatile mass Extremities: normal inspection, no pedal edema, no calf tenderness 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 atrial fibrillation new onset finally converted to sinus cont cardizem, metoprolol and dig not an anticoagulation candidate, patient with balance issues 2. pneumonia improving 3. confusion likely sundowning recommend discharge 4. HTN only option at this point would be to add po hydralazine will give a trial this AM of 10mg can d/c on 10mg tid f/u as outpatient ok to d/c to home from cardiac standpoint.
--- NOTE | 2016-07-24 08:59 | Progress Note ---
Internal Med Progress Note Date of Service: July 24, 2016. Provider Documentation: SUBJECTIVE: The patient was seen and examined No more Tachycardia since last morning Denies any symptoms Wants to go home OBJECTIVE: Vital Signs-as noted below Exam: General-No distress at rest Eyes-normal ENT-normal Neck-Supple Lungs-Clear to ausucltate bilaterally Heart-Irregular,2/6 ESM precordial area Abdomen-Benign,no masses,bowel sound present Extremities-No edema Neuro-AAOx3 Lab data as noted below. ASSESSMENT & PLAN: ATRIAL FIBRILLATION WITH RVR -rete is not yet controlled - Was on Cardizem drip for rate control and later on changed to oral - Started on BB and dose increased gradually - CHADS2 score 3 - Has been on heparin drip - Not on anticoagulated due to unsteady gait / fall risk Appreciate Cardiology i9nput PT/OT evaluation-no home health Persistent Tachycardia-BB increased Received 1 dose of digoxin this morning 0n 07/23/16 and may get another dose IV if needed tonight If the rate remains stable -may be discharged in AM Adjust medications on discharge as per cardiology Remains in SR and controlled rate Denies any symptoms Will discharge home today ELEVATED TROPONIN - likely demand ischemia from tachycardia - Denies any chest pain -no evidence of ACS Echo showed * Pt. is in rapid atrial fib during the exam. * The left atrium is severely dilated. * The right atrium is severely dilated. * Left ventricular systolic function is mildly reduced. * Ejection Fraction = 45-50%. * The right ventricular systolic function is normal. * Mild aortic regurgitation. NO ACS GISELLE - likely due to acute illness and dehydration - HCTZ and Losartan on hold - Kidney function normalized ELECTROLYTES IMBALANCE Supplement and recheck Corrected SINUSITIS - WBC trending down - Afebrile, blood cx pending - Continue Levaquin for a total of 10 days -WCC is down DM - hgb a1c /0 10/2015 - hold metformin and utilize SSI while hospitalized HTN - Losartan resumed - continue to hold HCTZ - Stable now DVT PROPHYLAXIS - on Heparin drip CODE STATUS FULL CODE Consultants: Cardio Disposition PT/OT Likely home tomorrow Discussed with the Daughter Will discharge home today Vital Signs: Date Time Temp Pulse Resp B/P Pulse Ox O2 Delivery O2 Flow Rate FiO2 07/24/16 08:14 36.7 77 18 149/80 96 07/24/16 04:51 79 155/83 07/24/16 04:01 Room Air 07/24/16 03:53 86 167/81 07/24/16 03:48 36.7 77 18 160/81 97 Room Air 07/24/16 00:02 Room Air 07/23/16 23:17 36.6 101 18 161/77 95 Room Air 07/23/16 22:00 36.7 83 20 152/81 97 Room Air 07/23/16 20:00 Room Air 07/23/16 16:00 Room Air 07/23/16 15:20 36.8 80 20 147/78 97 Room Air 07/23/16 12:00 Room Air 07/23/16 10:45 36.7 80 18 131/79 96 Room Air Lab Results: Results Past 24 Hours Test 07/23/16 10:55 07/23/16 15:49 07/23/16 19:55 07/24/16 05:14 Range/Units Bedside Glucose 132 98 154 70-90 mg/dl White Blood Count 8.12 4.8-10.8 K/uL Red Blood Count 4.25 4.2-5.4 M/uL Hemoglobin 12.6 12.0-16.0 g/dL Hematocrit 38.0 37-47 % Mean Corpuscular Volume 89.4 80-100 fL Mean Corpuscular Hemoglobin 29.6 25-34 pg Mean Corpuscular Hemoglobin Concent 33.2 32-36 g/dl RDW Standard Deviation 44.0 36.4-46.3 fL RDW Coefficient of Variation 13.6 11.5-14.5 % Platelet Count 562 130-400 K/uL Mean Platelet Volume 8.7 7.4-10.4 fL Activated Partial Thromboplast Time 26.9 21.0-31.0 SECONDS Partial Thromboplastin Ratio 1.0 Sodium Level 140 136-145 mmol/L Potassium Level 4.1 3.5-5.1 mmol/L Chloride Level 104 98-107 mmol/L Carbon Dioxide Level 31 21-32 mmol/L Anion Gap 5.0 3-11 mmol/L Blood Urea Nitrogen 10 7-18 mg/dl Creatinine 0.69 0.60-1.20 mg/dl Est Creatinine Clear Calc Drug Dose 50.6 ml/min Estimated GFR () 94.6 Estimated GFR (Non- 81.6 BUN/Creatinine Ratio 15.0 10-20 Random Glucose 100 70-99 mg/dl Calcium Level 9.1 8.5-10.1 mg/dl Magnesium Level 1.8 1.8-2.4 mg/dl Test 07/24/16 06:27 Range/Units Bedside Glucose 88 70-90 mg/dl
[2016-07-24] MEDS ORDERED: HydrALAZINE 10 MG TAB PO SCH (09:00)
[2016-07-24] MEDS ORDERED: TPRSR50 PO (09:03)
[2016-07-24] MEDS ORDERED: CRDCD180 PO (09:03)
[2016-07-24] MEDS ORDERED: LVQ500 PO (09:03)
[2016-07-24] MEDS ORDERED: LNX125 PO (09:03)
--- NOTE | 2016-07-24 09:09 | Discharge Instructions ---
Discharge Instructions Date of Service July 24, 2016. Admission Reason for Admission: Atrial Fibrillation With Rvr Discharge Discharge Diagnosis / Problem: Atrial Fibrillation with Rapid Ventricular rate- controlled Discharge Goals Goal(s): Prevent Disease Progression Activity Recommendations Activity Limitations: resume your previous activity . Instructions / Follow-Up Instructions / Follow-Up Dr Uribe on 07/27/16 at 12:45PM.Please keep cardiology appointment Current Hospital Diet Patient's current hospital diet: AHA Diet (Heart Healthy), Diabetes Type 2 Diet Discharge Diet Recommended Diet: Diabetes Type 2 Diet Pending Studies Studies pending at discharge: no Medical Emergencies . Who to Call and When: Medical Emergencies: If at any time you feel your situation is an emergency, please call 911 immediately. . Non-Emergent Contact Non-Emergency issues call your: Primary Care Provider . Past History Medical & Surgical History: (1) DM type 2 (diabetes mellitus, type 2) (2) Paroxysmal atrial fibrillation (3) Ocular hypertension (4) Dyslipidemia (5) Hypertension (6) History of cholecystectomy (7) Previous section (8) S/P laparoscopic cholecystectomy (9) History of lumbar laminectomy (10) History of cataract surgery (11) S/P partial mastectomy . "Provider Documentation" section prepared by Johnathan Hirsch. . VTE Core Measure Inpt VTE Proph given/why not?: Other Anticoagulation (IV Heparin)
--- NOTE | 2016-07-24 09:12 | Discharge Summary ---
Discharge Summary Date of Service July 24, 2016. Discharge Summary Admission Date: July 17, 2016 at 13:12 Discharge Date: July 24, 2016 Discharge Disposition: Home Principal Diagnosis: AF with RVR -rete controlled Secondary Diagnoses/Problems: Please see H&P and Hospital Progress note Consultations: Cardio Medication Reconciliation New Medications: Digoxin (Digoxin) 0.125 Mg Tab 0.125 MG PO DAILY@16 for 30 Days, #30 TAB Diltiazem HCl (Diltiazem HCl ER) 180 Mg Capcr 180 MG PO QAM for 30 Days, #30 Levofloxacin (Levofloxacin) 500 Mg Tab 500 MG PO DAILY@11 for 3 Days, #3 TAB Metoprolol Succinate (Metoprolol Succinate ER) 50 Mg Tabcr 50 MG PO BID for 30 Days, #60 Continued Medications: Aspirin Enteric Coated (Ecotrin Or Generic *) 81 Mg Ectab 81 MG PO DAILY, 0 Refills B-Complex W/ Folic Acid (B Complex) 1 Tab Tab 1 TAB PO DAILY Calcium Citrate-Vitamin D (Citracal + D3 Maximum) 1 Tab Tab 1 TAB PO DAILY Celecoxib (CeleBREX) 200 Mg Cap 200 MG PO DAILY PRN for Pain, CAP Ezetimibe-Simvastatin (Ezetimibe/Simvastatin 10-10 mg) 1 Tab Tab 1 TAB PO DAILY Losartan Potassium (Cozaar) 100 Mg Tab 1 TAB PO DAILY for 30 Days, #30 TAB Metformin Hcl (Glucophage) 500 Mg Tab 500 MG PO BID, TAB Timolol Maleate (Ophth) (Timoptic) 0.5 % Anisa 1 DROPS OP UD for 60 Days, #10 ML 3 Refills Tolterodine Tartrate (Tolterodine Tartrate) 1 Mg Tab 1 MG PO BID Tramadol (Ultram) 50 Mg Tab 50 MG PO Q6H PRN for Pain, TAB Discontinued Medications: Diltiazem Hcl Ext Rel (Dilacor Xr *) 120 Mg Ercap 120 MG PO DAILY, 0 Refills Hydrochlorothiazide (Hydrochlorothiazide) 12.5 Mg Tab 1 TAB PO DAILY for 30 Days, #30 TAB 5 Refills Metoprolol Succinate (Toprol Xl) 25 Mg Tabcr 25 MG PO HS, #30 TAB Admission Information HPI (per Admitting provider): 80 year old female who presents to the ER with cough and congestion. Patient reports her symptoms have been present for one week and have been progressively getting worse. She also reports associated sinus pressure. Cough is productive for green sputum. She denies fever and chills. She reports she initially had a sore throat that has since resolved. Her voice is hoarse. She denies chest pain , palpitations, and shortness of breath. She reports chronic lightheadedness with standing that is unchanged from baseline. She denies dizziness or syncopal events. She has had a poor appetite but denies nausea, vomiting, diarrhea, or abdominal pain. She denies urinary symptoms. In the ER, patient was found to have a wide complex tachycardia with rates in the 180s. HR was able to be slowed down with Cardizem and underlying rhythm is atrial fibrillation with LBBB. She is asymptomatic from a cardiac stand point. She was placed on Cardizem and Heparin drips. She was also given Levaquin, IVF, and full dose aspirin. Past Medical/Surgical History Medical Problems: (1) Breast cancer Status: Chronic (2) DJD (degenerative joint disease), lumbar Status: Chronic (3) DM type 2 (diabetes mellitus, type 2) Status: Chronic (4) Dyslipidemia Status: Chronic (5) Hypertension Status: Chronic (6) Ocular hypertension Status: Chronic (7) Paroxysmal atrial fibrillation Status: Chronic (8) Renal artery stenosis Status: Chronic Surgical Problems: (1) History of cataract surgery Status: Chronic (2) History of cholecystectomy Status: Chronic (3) History of lumbar laminectomy Status: Chronic (4) Previous section Status: Chronic (5) S/P laparoscopic cholecystectomy Status: Chronic (6) S/P partial mastectomy Status: Chronic Family History non contributory due to patient's advanced age Social History Smoking Status: Never Smoker Alcohol Use: none Marital Status: Housing status: lives alone Immunizations History of Influenza Vaccine: Yes Influenza Vaccine Date: Mar 12, 2016 History of Tetanus Vaccine?: Yes Tetanus Immunization Date: May 27, 2007 History of Pneumococcal: Yes Pneumococcal Date: Oct 24, 2015 Allergies Coded Allergies: Ampicillin (Unverified Adverse Reaction, Unknown, DIARRHEA, 07/17/16) Home Medications Scheduled Aspirin Enteric Coated (Ecotrin Or Generic *), 81 MG PO DAILY B-Complex W/ Folic Acid (B Complex), 1 TAB PO DAILY Calcium Citrate-Vitamin D (Citracal + D3 Maximum), 1 TAB PO DAILY Diltiazem Hcl Ext Rel (Dilacor Xr *), 120 MG PO DAILY Ezetimibe-Simvastatin (Ezetimibe/Simvastatin 10-10 mg), 1 TAB PO DAILY Hydrochlorothiazide (Hydrochlorothiazide), 1 TAB PO DAILY Losartan Potassium (Cozaar), 1 TAB PO DAILY Metformin Hcl (Glucophage), 500 MG PO BID Metoprolol Succinate (Toprol Xl), 25 MG PO HS Timolol Maleate (Ophth) (Timoptic), 1 DROPS OP UD Tolterodine Tartrate (Tolterodine Tartrate), 1 MG PO BID Scheduled PRN Celecoxib (CeleBREX), 200 MG PO DAILY PRN for Pain Tramadol (Ultram), 50 MG PO Q6H PRN for Pain Review of Systems ROS per HPI, all other systems reviewed and negative Physical Exam Vital Signs Date Time Temp Pulse Resp B/P Pulse Ox O2 Delivery O2 Flow Rate FiO2 07/17/16 13:29 125 18 110/76 97 Nasal Cannula 2.0 07/17/16 13:16 120 18 112/56 97 Nasal Cannula 2.0 07/17/16 13:02 120 18 105/60 98 Nasal Cannula 2.0 07/17/16 13:00 114 07/17/16 12:56 117 18 114/61 96 Nasal Cannula 2.0 07/17/16 12:40 105 16 113/57 98 Nasal Cannula 2.0 07/17/16 12:30 130 16 98/65 98 Nasal Cannula 2.0 07/17/16 12:23 117 18 126/75 99 Nasal Cannula 2.0 07/17/16 12:20 165 18 112/84 97 Nasal Cannula 2.0 07/17/16 12:18 172 20 132/86 98 Nasal Cannula 2.0 07/17/16 12:12 172 22 91/73 99 Nasal Cannula 2.0 07/17/16 11:50 130 16 112/84 96 Nasal Cannula 2.0 07/17/16 11:45 102 16 94/68 96 Nasal Cannula 2.0 07/17/16 11:41 36.5 171 16 105/73 96 07/17/16 11:38 171 20 88/67 96 Room Air 07/17/16 11:38 96 Nasal Cannula 2.0 07/17/16 11:38 96 Nasal Cannula 2.0 07/17/16 11:22 181 07/17/16 11:08 36.5 154 16 77/65 98 Room Air General Appearance: no apparent distress Head: normocephalic, + pertinent finding (no sinus tenderness on palpation) Eyes: normal inspection ENT: + pertinent finding (dry mucous membranes, voice hoarse) Neck: supple, no JVD Respiratory/Chest: lungs clear, normal breath sounds, no respiratory distress Cardiovascular: no edema, + tachycardia (rates in the 110s), + irregularly irregular Abdomen/GI: normal bowel sounds, non tender, soft Extremities/Musculoskelatal: normal inspection, no calf tenderness Neurologic/Psych: no motor/sensory deficits, alert, normal mood/affect, oriented x 3 Skin: normal color, warm/dry Diagnostics Laboratory Results Results Past 24 Hours Test 07/17/16 11:24 07/17/16 11:26 Range/Units White Blood Count 18.11 4.8-10.8 K/uL Red Blood Count 4.87 4.2-5.4 M/uL Hemoglobin 14.7 12.0-16.0 g/dL Hematocrit 42.6 37-47 % Mean Corpuscular Volume 87.5 80-100 fL Mean Corpuscular Hemoglobin 30.2 25-34 pg Mean Corpuscular Hemoglobin Concent 34.5 32-36 g/dl Platelet Count 451 130-400 K/uL Mean Platelet Volume 9.2 7.4-10.4 fL Neutrophils (%) (Auto) 77.7 % Lymphocytes (%) (Auto) 12.0 % Monocytes (%) (Auto) 9.4 % Eosinophils (%) (Auto) 0.2 % Basophils (%) (Auto) 0.3 % Neutrophils # (Auto) 14.07 1.4-6.5 K/uL Lymphocytes # (Auto) 2.18 1.2-3.4 K/uL Monocytes # (Auto) 1.70 0.11-0.59 K/uL Eosinophils # (Auto) 0.04 0-0.5 K/uL Basophils # (Auto) 0.05 0-0.2 K/uL RDW Standard Deviation 42.0 36.4-46.3 fL RDW Coefficient of Variation 13.1 11.5-14.5 % Immature Granulocyte % (Auto) 0.4 % Immature Granulocyte # (Auto) 0.07 0.00-0.02 K/uL Prothrombin Time 11.2 9.0-12.0 SECONDS Prothromb Time International Ratio 1.0 0.9-1.1 Activated Partial Thromboplast Time 28.6 21.0-31.0 SECONDS Partial Thromboplastin Ratio 1.1 Sodium Level 137 136-145 mmol/L Potassium Level 3.3 3.5-5.1 mmol/L Chloride Level 99 98-107 mmol/L Carbon Dioxide Level 27 21-32 mmol/L Anion Gap 11.0 21.0 16-25 mmol/L Blood Urea Nitrogen 20 7-18 mg/dl Creatinine 1.70 0.60-1.20 mg/dl Est Creatinine Clear Calc Drug Dose 20.5 ml/min Estimated GFR () 32.2 Estimated GFR (Non- 27.8 BUN/Creatinine Ratio 11.6 10-20 Random Glucose 154 70-99 mg/dl Calcium Level 9.9 8.5-10.1 mg/dl Magnesium Level 2.1 1.8-2.4 mg/dl Total Bilirubin 0.6 0.2-1 mg/dl Direct Bilirubin 0.3 0-0.2 mg/dl Aspartate Amino Transf (AST/SGOT) 40 15-37 U/L Alanine Aminotransferase (ALT/SGPT) 41 12-78 U/L Alkaline Phosphatase 143 45-117 U/L Total Creatine Kinase 65 26-192 U/L Creatine Kinase MB 2.3 0.5-3.6 ng/ml Creatine Kinase MB Ratio 3.5 0-3.0 Troponin I 0.338 0-0.045 ng/ml Total Protein 7.5 6.4-8.2 gm/dl Albumin 2.9 3.4-5.0 gm/dl Thyroid Stimulating Hormone (TSH) 1.900 0.300-4.500 uIu/ml Bedside Hemoglobin 15.3 12.0-16.0 g/dl Bedside Hematocrit 45 37-47 % Bedside Sodium 137 135-144 mEq/L Bedside Potassium 3.3 3.3-5.0 mEq/L Bedside Chloride 95 101-112 mEq/L Bedside Total CO2 26 24-31 mEq/l Bedside Blood Urea Nitrogen 20 7-18 mg/dl Bedside Creatinine 1.6 0.6-1.3 mg/dl Bedside Glucose (other) 164 70-99 mg/dl Bedside Ionized Calcium (Yenni) 1.14 1.12-1.32 mmol/l Microbiology Results 07/17/16 Blood Culture, Received Pending 07/17/16 Blood Culture, Received Pending Diagnostic Radiology CXR IMPRESSION: No acute cardiopulmonary findings. Impression Assessment and Plan ATRIAL FIBRILLATION WITH RVR - admit to tele - patient presenting with sinusitis type symptoms; found to be in wide complex tachycardia with rates in the 180s, rate was slowed down with Cardizem and underlying rhythm is atrial fibrillation RVR with LBBB; was asymptomatic from a cardiac stand point - has history of PAF - on diltiazem and metoprolol; not anticoagulated due to unsteady gait / fall risk - likely sinusitis and dehydration as precipitating factor - K+ mildly low at 3.3, normal Mg+ and TSH - echo - cardizem drip started in ER with improvement in rates, will continue with - heparin drip also started in ER, will continue with for now and defer decision of mcfp anticoagulation to cardiology; CHADS2 score 3 (HTN, age, DM) ELEVATED TROPONIN - likely demand ischemia from tachycardia - continue to cycle cardiac enzymes - resting echo - continue ASA and statin; holding metoprolol while on cardizem gtt - cath 2006 - normal coronaries GISELLE - likely due to acute illness - IVF, follow up labs in AM - hold HCTZ and Losartan HYPOKALEMIA - mild, replace - Mg+ WNL SINUSITIS - s/p Levaquin in ED, will continue with - WBC 18K, tachycardia - does not appear toxic, do not suspect sepsis DM - hgb a1c 10/2015 - hold metformin and utilize SSI while hospitalized HTN - BP low on arrival which improved with HR control - holding diltiazem and metoprolol while on Cardizem gtt; holing HCTZ and Losartan due to GISELLE DVT PROPHYLAXIS - on Heparin gtt CODE STATUS - Patient is a full code as per my discussion with her. DISPO - In my clinical judgment this beneficiary meets acute admission criteria, established by [facility], that includes being hospitalized through two midnights. Attending Addendum: The patient was seen and examined Presented with Cough ,congestion and sinus pain /pressure Generally weak and lethargic NO Chest pain/palpitation Noted to have Wide complex Tachycardia in ER and started on IV Cardizem O/E No acute distress Hemodynamically stable Chest-Decreased breath sound bilaterally Heart-irregular,2/6 ESM precordial area Abdomen-benign,no masses,bowel sound present Extremities-negative for any edema Labs and Imaging studies were reviewed Agree with the assessment and plan. Dr Rehana Hirsch VTE Prophylaxis VTE Risk Assessment Done? Y/N: Yes Risk Level: Moderate Given or contraindicated: Other Anticoagulation <Electronically signed by Jodi KELLY> <Electronically signed by Johnathan Hirsch M.D.> Physical Exam (per Admitting): General Appearance: no apparent distress Head: normocephalic, + pertinent finding (no sinus tenderness on palpation) Eyes: normal inspection ENT: + pertinent finding (dry mucous membranes, voice hoarse) Neck: supple, no JVD Respiratory/Chest: lungs clear, normal breath sounds, no respiratory distress Cardiovascular: no edema, + tachycardia (rates in the 110s), + irregularly irregular Abdomen/GI: normal bowel sounds, non tender, soft Extremities/Musculoskelatal: normal inspection, no calf tenderness Neurologic/Psych: no motor/sensory deficits, alert, normal mood/affect, oriented x 3 Skin: normal color, warm/dry Hospital Course ATRIAL FIBRILLATION WITH RVR -rete is not yet controlled - Was on Cardizem drip for rate control and later on changed to oral - Started on BB and dose increased gradually - CHADS2 score 3 - Has been on heparin drip - Not on anticoagulated due to unsteady gait / fall risk Appreciate Cardiology i9nput PT/OT evaluation-no home health Persistent Tachycardia-BB increased Received 1 dose of digoxin this morning 0n 07/23/16 and may get another dose IV if needed tonight If the rate remains stable -may be discharged in AM Adjust medications on discharge as per cardiology Remains in SR and controlled rate Denies any symptoms Will discharge home today ELEVATED TROPONIN - likely demand ischemia from tachycardia - Denies any chest pain -no evidence of ACS Echo showed * Pt. is in rapid atrial fib during the exam. * The left atrium is severely dilated. * The right atrium is severely dilated. * Left ventricular systolic function is mildly reduced. * Ejection Fraction = 45-50%. * The right ventricular systolic function is normal. * Mild aortic regurgitation. NO ACS GISELLE - likely due to acute illness and dehydration - HCTZ and Losartan on hold - Kidney function normalized ELECTROLYTES IMBALANCE Supplement and recheck Corrected SINUSITIS - WBC trending down - Afebrile, blood cx pending - Continue Levaquin for a total of 10 days -WCC is down DM - hgb a1c 6/0 10/2015 - hold metformin and utilize SSI while hospitalized HTN - Losartan resumed - continue to hold HCTZ - Stable now DVT PROPHYLAXIS - on Heparin drip CODE STATUS FULL CODE Consultants: Cardio Disposition PT/OT Likely home tomorrow Discussed with the Daughter Will discharge home today Total time spent on discharge = 35 minutes This includes examination of the patient, discharge planning, medication reconciliation, and communication with other providers. Discharge Instructions Date of Service July 24, 2016. Admission Reason for Admission: Atrial Fibrillation With Rvr Discharge Discharge Diagnosis / Problem: Atrial Fibrillation with Rapid Ventricular rate- controlled Discharge Goals Goal(s): Prevent Disease Progression Activity Recommendations Activity Limitations: resume your previous activity . Instructions / Follow-Up Instructions / Follow-Up Dr Uribe on 07/27/16 at 12:45PM.Please keep cardiology appointment Current Hospital Diet Patient's current hospital diet: AHA Diet (Heart Healthy), Diabetes Type 2 Diet Discharge Diet Recommended Diet: Diabetes Type 2 Diet Pending Studies Studies pending at discharge: no Medical Emergencies . Who to Call and When: Medical Emergencies: If at any time you feel your situation is an emergency, please call 911 immediately. . Non-Emergent Contact Non-Emergency issues call your: Primary Care Provider . Past History Medical & Surgical History: (1) DM type 2 (diabetes mellitus, type 2) (2) Paroxysmal atrial fibrillation (3) Ocular hypertension (4) Dyslipidemia (5) Hypertension (6) History of cholecystectomy (7) Previous section (8) S/P laparoscopic cholecystectomy (9) History of lumbar laminectomy (10) History of cataract surgery (11) S/P partial mastectomy . "Provider Documentation" section prepared by Johnathan Hirsch. . VTE Core Measure Inpt VTE Proph given/why not?: Other Anticoagulation (IV Heparin) <Electronically signed by Johnathan Hirsch M.D.> Signed: 07/24/16 0909 Additional Copies To Rosanne Uribe M.D.
[2016-07-24] MEDS: LEVOFLOXACIN 500 MG TAB PO SCH (11:36)
[2016-07-24] MEDS ORDERED: DIGOXIN 0.125 MG TAB PO SCH (16:00)
[2016-07-24] MEDS ORDERED: METOPROLOL SUCC 50MG EXT REL TAB PO SCH (21:00)
== END 2016-07-24 17:22 | disposition home or self-care (01) | DRG 309 ==
LOC: ENRESERVTM → ENRESERVDT → C.EDB 11:01 → C.2T 13:12
PROVIDERS: ADMIT Internal Medicine; ATTEND Internal Medicine
DX: I48.0 Paroxysmal atrial fibrillation (principal); N17.9 Acute kidney failure, unspecified; I24.8 Other forms of acute ischemic heart disease; M47.816 Spondylosis without myelopathy or radiculopathy, lumbar region; T50.2X5A Adverse effect of carbonic-anhydrase inhibitors, benzothiadiazides and other diuretics, initial encounter; E78.5 Hyperlipidemia, unspecified; I10 Essential (primary) hypertension; J32.9 Chronic sinusitis, unspecified; E11.9 Type 2 diabetes mellitus without complications; E86.0 Dehydration; H40.059 Ocular hypertension, unspecified eye; E87.6 Hypokalemia; I70.1 Atherosclerosis of renal artery; I44.7 Left bundle-branch block, unspecified; Z85.3 Personal history of malignant neoplasm of breast; I95.9 Hypotension, unspecified; Z83.3 Family history of diabetes mellitus; Y92.008 Other place in unspecified non-institutional (private) residence as the place of occurrence of the external cause

== ENCOUNTER 2017-03-30 08:24 | Inpatient (IN) | payer OTHER ==
[~2017-03-30] VITALS: Ht 160 cm; Wt 55.2 kg
[2017-03-30] VITALS (7 sets, daily range): BP systolic 157–167; BP diastolic 65–73; PULSE 70–79; TEMP 36.9–37.3; O2SAT 90–97; Ht 160 cm; Wt 55.2 kg
[~2017-03-30 08:24] MED LIST changes: +CRDCD180 PO; -DLCSR120 PO; +EZET1TAB27 PO; -HYDR12.55 PO; -IMDSR30 PO; +LNX125 PO; +LVQ500 PO; -METO25TA3 PO; +TPRSR50 PO; -VYT1010 PO
[2017-03-30] MEDS ORDERED: ACETAMINOPHEN 500 MG TAB PO STA (09:05)
--- NOTE | 2017-03-30 09:05 | DIAGNOSTIC IMAGING REPORT ---
CHEST ONE VIEW PORTABLE HISTORY: EVALUATE WEAKNESS COMPARISON: Chest 07/17/2016. FINDINGS: The heart remains mildly enlarged. No focal lung consolidations to suggest pneumonia. No evidence for pulmonary edema. No pleural effusions. No pneumothorax. Cholecystectomy. IMPRESSION: Stable mild cardiomegaly. Electronically signed by: Darnell Huddleston M.D. 03/30/2017 9:04 AM Dictated Date/Time: 03/30/2017 9:03 AM
--- NOTE | 2017-03-30 09:15 | EMERGENCY ROOM VISIT NOTE ---
History Report prepared by Dyllan: Cb Machado Under the Supervision of: Dr. Alek Trujillo M.D. First contact with patient: 08:46 Chief Complaint: FLU LIKE SX Stated Complaint: FLU SYMPTOMS History of Present Illness The patient is an 81 year old female who presents to the Emergency Room with complaints of persistent fevers and chills that she has been experiencing for the past two days. The patient also complains of a persistent cough and some shortness of breath on exertion, but denies any chest pains recently. She also denies and recent LOC, headache, visual changes, neck pain, chest pain, breathing difficulties, nausea, vomiting, abdominal pain, back pain, melena, hematochezia, urinary symptoms, numbness, weakness, lymphadenopathy, rash, or other complaints. The patient's son notes that his sister, who had interaction with the patient recently, was diagnosed with the flu. 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 A total of ten systems were reviewed and were otherwise negative. Past Medical & Surgical Medical Problems: (1) Breast cancer (2) DJD (degenerative joint disease), lumbar (3) DM type 2 (diabetes mellitus, type 2) (4) Dyslipidemia (5) Hypertension (6) LBBB (left bundle branch block) (7) Ocular hypertension (8) Paroxysmal atrial fibrillation (9) Renal artery stenosis (10) Systolic dysfunction Surgical Problems: (1) History of cataract surgery (2) History of cholecystectomy (3) History of lumbar laminectomy (4) Previous section (5) S/P laparoscopic cholecystectomy (6) S/P partial mastectomy Family History Diabetes mellitus FHx: cancer FHx: gallbladder disease Hypertension Social History Smoking Status: Never Smoker Marital Status: Housing Status: lives alone Current/Historical Medications Scheduled Aspirin (Aspirin Ec), 81 MG PO DAILY B-Complex W/ Folic Acid (B Complex), 1 TAB PO DAILY Calcium Citrate-Vitamin D (Citracal + D3 Maximum), 1 TAB PO DAILY Diltiazem HCl (Diltiazem HCl ER), 180 MG PO QAM Ezetimibe-Simvastatin (Ezetimibe/Simvastatin 10-10 mg), 1 TAB PO DAILY Losartan Potassium (Cozaar), 1 TAB PO DAILY Metoprolol Succinate (Metoprolol Succinate ER), 50 MG PO BID Timolol Maleate (Ophth) (Timoptic), 1 DROPS OP UD Tolterodine Tartrate (Tolterodine Tartrate), 1 MG PO BID Scheduled PRN Celecoxib (CeleBREX), 1 CAP PO DAILY PRN for Pain Tramadol (Ultram), 50 MG PO Q6H PRN for Pain Allergies Coded Allergies: Ampicillin (Unverified Adverse Reaction, Unknown, DIARRHEA, 03/30/17) Physical Exam Vital Signs Date Time Temp Pulse Resp B/P (MAP) Pulse Ox O2 Delivery O2 Flow Rate FiO2 03/30/17 11:30 85 20 164/88 95 Nasal Cannula 2.0 03/30/17 11:00 87 28 171/86 96 Nasal Cannula 2.0 03/30/17 10:38 87 Nasal Cannula 2.0 03/30/17 10:35 38.8 03/30/17 10:33 91 26 165/95 91 Room Air 03/30/17 09:12 97 03/30/17 09:05 Room Air 03/30/17 08:34 39.4 93 20 183/72 92 Room Air Physical Exam GENERAL: Awake, alert, mildly ill-appearing, in no distress HENT: Normocephalic, atraumatic. Oropharynx unremarkable. EYES: Normal conjunctiva. Sclera non-icteric. NECK: Supple. No nuchal rigidity. FROM. No JVD. RESPIRATORY: Clear to auscultation. CARDIAC: Regular rate, normal rhythm. Extremities warm and well perfused. Pulses equal. ABDOMEN: Soft, non-distended. No tenderness to palpation. No rebound or guarding. No masses. RECTAL: Deferred. MUSCULOSKELETAL: Chest examination reveals no tenderness. The back is symmetrical on inspection without obvious abnormality. There is no CVA tenderness to palpation. No joint edema. LOWER EXTREMITIES: Calves are equal size bilaterally and non-tender. No edema. No discoloration. NEURO: Normal sensorium. No sensory or motor deficits noted. SKIN: No rash or jaundice noted. Medical Decision & Procedures ER Provider Diagnostic Interpretation: Radiology results as stated below per my review and radiologist interpretation: CHEST ONE VIEW PORTABLE HISTORY: EVALUATE WEAKNESS COMPARISON: Chest 07/17/2016. FINDINGS: The heart remains mildly enlarged. No focal lung consolidations to suggest pneumonia. No evidence for pulmonary edema. No pleural effusions. No pneumothorax. Cholecystectomy. IMPRESSION: Stable mild cardiomegaly. Electronically signed by: Darnell Huddleston M.D. 03/30/2017 9:04 AM Dictated Date/Time: 03/30/2017 9:03 AM Laboratory Results 03/30/17 09:05 Red Blood Count 4.75, Mean Corpuscular Volume 88.0, Mean Corpuscular Hemoglobin 30.3, Mean Corpuscular Hemoglobin Concent 34.4, Mean Platelet Volume 9.0, Neutrophils (%) (Auto) 83.3, Lymphocytes (%) (Auto) 7.1, Monocytes (%) (Auto) 9.0, Eosinophils (%) (Auto) 0.0, Basophils (%) (Auto) 0.3, Neutrophils # (Auto) 7.82, Lymphocytes # (Auto) 0.67, Monocytes # (Auto) 0.85, Eosinophils # (Auto) 0.00, Basophils # (Auto) 0.03 03/30/17 09:05 Test 03/30/17 09:05 03/30/17 09:18 White Blood Count 9.40 K/uL (4.8-10.8) Red Blood Count 4.75 M/uL (4.2-5.4) Hemoglobin 14.4 g/dL (12.0-16.0) Hematocrit 41.8 % (37-47) Mean Corpuscular Volume 88.0 fL (80-100) Mean Corpuscular Hemoglobin 30.3 pg (25-34) Mean Corpuscular Hemoglobin Concent 34.4 g/dl (32-36) Platelet Count 199 K/uL (130-400) Mean Platelet Volume 9.0 fL (7.4-10.4) Neutrophils (%) (Auto) 83.3 % Lymphocytes (%) (Auto) 7.1 % Monocytes (%) (Auto) 9.0 % Eosinophils (%) (Auto) 0.0 % Basophils (%) (Auto) 0.3 % Neutrophils # (Auto) 7.82 K/uL (1.4-6.5) Lymphocytes # (Auto) 0.67 K/uL (1.2-3.4) Monocytes # (Auto) 0.85 K/uL (0.11-0.59) Eosinophils # (Auto) 0.00 K/uL (0-0.5) Basophils # (Auto) 0.03 K/uL (0-0.2) RDW Standard Deviation 43.7 fL (36.4-46.3) RDW Coefficient of Variation 13.6 % (11.5-14.5) Immature Granulocyte % (Auto) 0.3 % Immature Granulocyte # (Auto) 0.03 K/uL (0.00-0.02) Prothrombin Time 11.7 SECONDS (9.0-12.0) Prothromb Time International Ratio 1.1 (0.9-1.1) Activated Partial Thromboplast Time 28.2 SECONDS (21.0-31.0) Partial Thromboplastin Ratio 1.1 Anion Gap 9.0 mmol/L (3-11) Est Creatinine Clear Calc Drug Dose 52.0 ml/min Estimated GFR () 90.4 Estimated GFR (Non- 78.0 BUN/Creatinine Ratio 12.3 (10-20) Calcium Level 9.3 mg/dl (8.5-10.1) Magnesium Level 2.0 mg/dl (1.8-2.4) Total Bilirubin 0.6 mg/dl (0.2-1) Direct Bilirubin 0.2 mg/dl (0-0.2) Aspartate Amino Transf (AST/SGOT) 50 U/L (15-37) Alanine Aminotransferase (ALT/SGPT) 40 U/L (12-78) Alkaline Phosphatase 94 U/L (45-117) Total Creatine Kinase 88 U/L (26-192) Creatine Kinase MB < 0.5 ng/ml (0.5-3.6) Creatine Kinase MB Ratio (0-3.0) Troponin I < 0.015 ng/ml (0-0.045) Total Protein 8.1 gm/dl (6.4-8.2) Albumin 3.9 gm/dl (3.4-5.0) Lipase 95 U/L (73-393) Thyroid Stimulating Hormone (TSH) 0.459 uIu/ml (0.300-4.500) Influenza Type A Antigen POS for Influ A (NEG) Influenza Type B Antigen Neg for Influ B (NEG) Laboratory results reviewed by me Medications Administered Medications (Trade) Dose Ordered Sig/[place] Route Start Time Stop Time Status Last Admin Dose Admin Acetaminophen (Tylenol Tab) 1,000 mg NOW STAT PO 03/30/17 09:05 03/30/17 09:07 DC 03/30/17 09:16 1,000 MG Oseltamivir Phosphate (Tamiflu Cap) 75 mg NOW STAT PO 03/30/17 10:57 03/30/17 10:58 DC 03/30/17 11:43 75 MG ECG Indication: SOB/dyspnea Rate (beats per minute): 97 Rhythm: normal sinus Findings: LBBB, left axis deviation, no ectopy ED Course 0903: The patient was evaluated in room B10. A complete history and physical exam was performed. 0905: Ordered Tylenol 1000 mg PO. 1057: Ordered Tamiflu 75 mg PO. 1108: I checked on the patient at this time. She was doing well. 1133: I discussed the case with Jodi KELLY at this time. She will evaluate the patient for further treatment. Medical Decision Prior records/ancillary studies reviewed. Triage Nursing notes reviewed and agree them. Additional history obtained from family. The patient's history was concerning for like symptoms. Differential diagnosis: Etiologies such as influenza,otitis, pharyngitis, pneumonia,meningitis, urinary tract infection, sepsis, bacteremia, viral syndrome, as well as others were entertained. Physical examination: As above. ER treatment provided: Tylenol Oral Tamiflu Supplemental oxygen On reassessment the patient felt better. Diagnostics interpreted by me: ECG: No ischemia The labs revealed CBC and chemistry panel. Flu test is positive. Imaging studies: Chest x-ray as above The patient has influenza. Unfortunately she had marked supplemental oxygen. Further management in the hospital will be necessary. Patient and family educated. Consultation: A consultation was placed with the [facility] hospitalist service. The case was discussed and diagnostics were reviewed. The patient was evaluated in the ER for further treatment. Blood Pressure Screening Patient's blood pressure: Elevated blood pressure Referred to Hospitalist Consults Time Called: 1125 Consulting Physician: Jodi KELLY Hospitalist Returned Call: 1133 I discussed the case with Jodi KELLY at this time. She will evaluate the patient for further treatment. Impression Primary Impression: Influenza Additional Impression: Hypoxia Scribe Attestation The scribe's documentation has been prepared under my direction and personally reviewed by me in its entirety. I confirm that the note above accurately reflects all work, treatment, procedures, and medical decision making performed by me. Departure Information Dispostion Being Evaluated By Hospitalist Referrals Rosanne Uribe M.D. (PCP) Patient Instructions My [facility] Problem Qualifiers
[2017-03-30 09:25] LABS: BASO % 0.3 %; BASO ABS # 0.03 K/uL (0-0.2); HEMATOCRIT 41.8 % (37-47); HEMOGLOBIN 14.4 g/dL (12.0-16.0); IG# 0.03 K/uL (0.00-0.02); LYMPH % 7.1 %; LYMPH ABS # 0.67 K/uL (1.2-3.4); MEAN CORPUSCULAR HEMOGLOBIN 30.3 pg (25-34); MEAN CORPUSCULAR HGB CONC 34.4 g/dl (32-36); MONO ABS # 0.85 K/uL (0.11-0.59); NEUT % 83.3 %; NEUT ABS # 7.82 K/uL (1.4-6.5); PLATELET COUNT 199 K/uL (130-400); RED CELL DISTRIBUTION WIDTH CV 13.6 % (11.5-14.5); RED CELL DISTRIBUTION WIDTH SD 43.7 fL (36.4-46.3)
[2017-03-30] MEDS ORDERED: ASPI81TA28 PO (09:29)
[2017-03-30 09:34] LABS: INR 1.1 (0.9-1.1); PTT PATIENT 28.2 SECONDS (21.0-31.0)
[2017-03-30 09:53] LABS: ALBUMIN 3.9 gm/dl (3.4-5.0); ALT/SGPT 40 U/L (12-78); AST/SGOT 50 U/L (15-37); BLOOD UREA NITROGEN 9 mg/dl (7-18); CALCIUM 9.3 mg/dl (8.5-10.1); CARBON DIOXIDE 26 mmol/L (21-32); CREATININE 0.72 mg/dl (0.60-1.20); GLUCOSE 108 mg/dl (70-99); LIPASE 95 U/L (73-393); POTASSIUM 3.2 mmol/L (3.5-5.1); SODIUM 134 mmol/L (136-145)
[2017-03-30 10:01] LABS: ALKALINE PHOSPHATASE 94 U/L (45-117); CKMB < 0.5 ng/ml (0.5-3.6); TOTAL PROTEIN 8.1 gm/dl (6.4-8.2)
[2017-03-30 10:03] LABS: INFLUENZA B ANTIGEN Neg for Influ B (NEG)
[2017-03-30] MEDS ORDERED: OSELTAMIVIR PHOSPHATE 75 MG CAP PO STA (10:57)
[2017-03-30] MEDS ORDERED: ACETAMINOPHEN 325 MG TAB PO PRN (11:45)
[2017-03-30] MEDS ORDERED: ONDANSETRON INJ 2 MG/ML 2 ML VIAL IV PRN (11:45)
[2017-03-30] MEDS ORDERED: POTASSIUM CHLORIDE 10 MEQ TABCR PO STA (12:28)
[2017-03-30] MEDS ORDERED: CLB/200 PO (12:35)
[2017-03-30] MEDS ORDERED: TRAM-10 PO (12:35)
[2017-03-30] MEDS ORDERED: DILTIAZEM HCL 180 MG CAPCR PO ONE (12:36)
[2017-03-30] MEDS ORDERED: LOSARTAN POTASSIUM 50 MG TAB PO ONE (12:36)
[2017-03-30] MEDS ORDERED: METOPROLOL SUCC 50MG EXT REL TAB PO ONE (12:36)
[2017-03-30] MEDS ORDERED: TRAMADOL HCL 50 MG TAB PO PRN (12:45)
[2017-03-30] MEDS ORDERED: TIMOLOL MALEATE 0.5% OP SOLN 5 ML BTL OP SCH (12:45)
--- NOTE | 2017-03-30 13:33 | History and Physical ---
History & Physical Date & Time of Service: Mar 30, 2017 ~ 12:00 Chief Complaint: Flu Symptoms Primary Care Physician: Rosanne Uribe M.D. History of Present Illness 81 year old female who presents to the ED with generalized fatigue and fevers. Patient is somewhat a poor historian, has difficulty providing details about her recent illness. Per son who is at the bedside, patient has had more fatigue the past couple of days and was running fevers. She was around her daughter who was recently diagnosed with the flu. Patient reports chronic shortness of breath which is unchanged from baseline. She has a dry non productive cough. No chest pain. She denies lightheadedness, dizziness, diaphoresis, and syncopal events. No abdominal pain, nausea, vomiting, or diarrhea. She denies urinary symptoms. In the ED, patient is found to be influenza A positive. She was also mildly hypoxic on room air that improved with oxygen 2L via NC. Past Medical/Surgical History Medical Problems: (1) Breast cancer Status: Chronic (2) DJD (degenerative joint disease), lumbar Status: Chronic (3) DM type 2 (diabetes mellitus, type 2) Status: Chronic (4) Dyslipidemia Status: Chronic (5) Hypertension Status: Chronic (6) LBBB (left bundle branch block) Status: Chronic (7) Ocular hypertension Status: Chronic (8) Paroxysmal atrial fibrillation Status: Chronic (9) Renal artery stenosis Status: Chronic Surgical Problems: (1) History of cataract surgery Status: Chronic (2) History of cholecystectomy Status: Chronic (3) History of lumbar laminectomy Status: Chronic (4) Previous section Status: Chronic (5) S/P laparoscopic cholecystectomy Status: Chronic (6) S/P partial mastectomy Status: Chronic Family History non contributory due to patient's advanced age Social History Smoking Status: Never Smoker Alcohol Use: none Immunizations History of Influenza Vaccine: Yes Influenza Vaccine Date: Jan 01, 2017 History of Tetanus Vaccine?: Yes Tetanus Immunization Date: May 27, 2007 History of Pneumococcal: Yes Pneumococcal Date: Oct 24, 2015 Allergies Coded Allergies: Ampicillin (Unverified Adverse Reaction, Unknown, DIARRHEA, 03/30/17) Home Medications Scheduled Aspirin (Aspirin Ec), 81 MG PO DAILY B-Complex W/ Folic Acid (B Complex), 1 TAB PO DAILY Calcium Citrate-Vitamin D (Citracal + D3 Maximum), 1 TAB PO DAILY Diltiazem HCl (Diltiazem HCl ER), 180 MG PO QAM Ezetimibe-Simvastatin (Ezetimibe/Simvastatin 10-10 mg), 1 TAB PO DAILY Losartan Potassium (Cozaar), 1 TAB PO DAILY Metoprolol Succinate (Metoprolol Succinate ER), 50 MG PO BID Timolol Maleate (Ophth) (Timoptic), 1 DROPS OP UD Tolterodine Tartrate (Tolterodine Tartrate), 1 MG PO BID Scheduled PRN Celecoxib (CeleBREX), 1 CAP PO DAILY PRN for Pain Tramadol (Ultram), 50 MG PO Q6H PRN for Pain Review of Systems ROS per HPI, all other systems reviewed and negative Physical Exam Vital Signs Date Time Temp Pulse Resp B/P (MAP) Pulse Ox O2 Delivery O2 Flow Rate FiO2 03/30/17 12:50 79 03/30/17 10:38 87 Nasal Cannula 2.0 03/30/17 10:35 38.8 03/30/17 10:33 91 26 165/95 91 Room Air 03/30/17 09:12 97 03/30/17 09:05 Room Air 03/30/17 08:34 39.4 93 20 183/72 92 Room Air General Appearance: WD/WN, no apparent distress Head: normocephalic, atraumatic Eyes: normal inspection, EOMI, sclerae normal ENT: hearing grossly normal, + pertinent finding (mucous membranes moist) Neck: supple, no JVD, trachea midline Respiratory/Chest: + decreased breath sounds, + crackles (faint, BL bases) Cardiovascular: regular rate, rhythm, no edema, normal peripheral pulses Abdomen/GI: normal bowel sounds, non tender, soft, no organomegaly Extremities/Musculoskelatal: normal inspection, no calf tenderness, normal capillary refill Neurologic/Psych: no motor/sensory deficits, alert, normal mood/affect, oriented x 3 Skin: normal color, warm/dry Diagnostics Laboratory Results Results Past 24 Hours Test 03/30/17 09:05 03/30/17 09:18 Range/Units White Blood Count 9.40 4.8-10.8 K/uL Red Blood Count 4.75 4.2-5.4 M/uL Hemoglobin 14.4 12.0-16.0 g/dL Hematocrit 41.8 37-47 % Mean Corpuscular Volume 88.0 80-100 fL Mean Corpuscular Hemoglobin 30.3 25-34 pg Mean Corpuscular Hemoglobin Concent 34.4 32-36 g/dl Platelet Count 199 130-400 K/uL Mean Platelet Volume 9.0 7.4-10.4 fL Neutrophils (%) (Auto) 83.3 % Lymphocytes (%) (Auto) 7.1 % Monocytes (%) (Auto) 9.0 % Eosinophils (%) (Auto) 0.0 % Basophils (%) (Auto) 0.3 % Neutrophils # (Auto) 7.82 1.4-6.5 K/uL Lymphocytes # (Auto) 0.67 1.2-3.4 K/uL Monocytes # (Auto) 0.85 0.11-0.59 K/uL Eosinophils # (Auto) 0.00 0-0.5 K/uL Basophils # (Auto) 0.03 0-0.2 K/uL RDW Standard Deviation 43.7 36.4-46.3 fL RDW Coefficient of Variation 13.6 11.5-14.5 % Immature Granulocyte % (Auto) 0.3 % Immature Granulocyte # (Auto) 0.03 0.00-0.02 K/uL Prothrombin Time 11.7 9.0-12.0 SECONDS Prothromb Time International Ratio 1.1 0.9-1.1 Activated Partial Thromboplast Time 28.2 21.0-31.0 SECONDS Partial Thromboplastin Ratio 1.1 Sodium Level 134 136-145 mmol/L Potassium Level 3.2 3.5-5.1 mmol/L Chloride Level 99 98-107 mmol/L Carbon Dioxide Level 26 21-32 mmol/L Anion Gap 9.0 3-11 mmol/L Blood Urea Nitrogen 9 7-18 mg/dl Creatinine 0.72 0.60-1.20 mg/dl Est Creatinine Clear Calc Drug Dose 52.0 ml/min Estimated GFR () 90.4 Estimated GFR (Non- 78.0 BUN/Creatinine Ratio 12.3 10-20 Random Glucose 108 70-99 mg/dl Calcium Level 9.3 8.5-10.1 mg/dl Magnesium Level 2.0 1.8-2.4 mg/dl Total Bilirubin 0.6 0.2-1 mg/dl Direct Bilirubin 0.2 0-0.2 mg/dl Aspartate Amino Transf (AST/SGOT) 50 15-37 U/L Alanine Aminotransferase (ALT/SGPT) 40 12-78 U/L Alkaline Phosphatase 94 45-117 U/L Total Creatine Kinase 88 26-192 U/L Creatine Kinase MB < 0.5 0.5-3.6 ng/ml Creatine Kinase MB Ratio 0-3.0 Troponin I < 0.015 0-0.045 ng/ml Total Protein 8.1 6.4-8.2 gm/dl Albumin 3.9 3.4-5.0 gm/dl Lipase 95 73-393 U/L Thyroid Stimulating Hormone (TSH) 0.459 0.300-4.500 uIu/ml Influenza Type A Antigen POS for Influ A NEG Influenza Type B Antigen Neg for Influ B NEG Microbiology Results 03/30/17 Blood Culture, Received Pending 03/30/17 Blood Culture, Received Pending Diagnostic Radiology CXR IMPRESSION: Stable mild cardiomegaly. Impression Assessment and Plan INFLUENZA A ACUTE HYPOXIC RESPIRATORY FAILURE - admit to med/surg - patient presenting with generalized fatigue and fevers; found to be influenza A positive in the ED - febrile on presentation; no other signs of sepsis - no pneumonia on CXR - saturating well on 2L NC - supportive care with Tamiflu, IVF, and nebs; wean O2 as able, may need home O2 eval before discharge PAROXYSMAL ATRIAL FIBRILLATION - currently in NSR - rate controlled on metoprolol and diltiazem - not anticoagulated due to fall risk HTN - BP elevated - did not take home BP meds today - will give home doses of losartan, metoprolol and diltiazem now and reassess BP CHRONIC MILD SYSTOLIC DYSFUNCTION - appears euvolemic - monitor volume status closely DVT PROPHYLAXIS - SQ Lovenox CODE STATUS - Patient is a full code as per my discussion with her. DISPO - In my clinical judgment this beneficiary meets acute admission criteria, established by [facility], that includes being hospitalized through two midnights. - PT/OT, case management consults ATTENDING ADDENDUM : pt seen and examined, lab and images reviewed , care co -ordinated with Jodi KELLY 81 F very poor historian brought to for complain of fatigue , SOB , fever pt can not tell me any meaningful information , says that she has been feeling well no change in anything , was taking care of her cats does not know why she is in ER later recalls -" they found that I have flu " pt is in room air during my interview + FLU /INFLUENZA A started on Tamiflu IV fluids for dehydration air borne precaution febrile illness due to above Hyponatremia /hypokalemia : due to dehydration , viral illness , poor PO intake K replaced in ER -orally cont IVF NSS repeat PRP in AM please refer to documentation of Jodi KELLY for further discussion of other problems Josee Castelan MD VTE Prophylaxis VTE Risk Assessment Done? Y/N: Yes Risk Level: Moderate Additional Copies To Susan Williamson D.O.
[2017-03-30] MEDS: SODIUM CHLORIDE 0.9% 1000ML 1,000 ML IV SCH (14:15)
[2017-03-30] MEDS ORDERED: PNEUMOCOCCAL POLYSACCHARIDES 25 MCG/0.5 ML VIAL/SYR IM. ONE (15:00)
[2017-03-30] MEDS ORDERED: PNEUMOCOCCAL ADMINISTRATION CHARGE ONE (15:00)
[2017-03-30] MEDS: ALBUT/IPRATROP 3MG/0.5MG NEB 3 ML VIAL INH SCH ×2 (15:15→19:13)
[2017-03-30] MEDS ORDERED: ENOXAPARIN 40 MG/0.4 ML SYR SQ SCH (16:00)
[2017-03-30] MEDS: METOPROLOL SUCC 50MG EXT REL TAB PO SCH (20:33)
[2017-03-30] MEDS: TOLTERODINE TARTRATE 1 MG TAB PO SCH (20:34)
[2017-03-30] MEDS ORDERED: OSELTAMIVIR PHOSPHATE SUSP 30 MG/5 ML UDP PO SCH (21:00)
[2017-03-30] MEDS ORDERED: SIMVASTATIN 10 MG TAB PO SCH (21:00)
[2017-03-30] MEDS ORDERED: EZETIMIBE 10MG TAB PO SCH (21:00)
[2017-03-30] MEDS ORDERED: OSELTAMIVIR PHOSPHATE 75 MG CAP PO SCH (21:00)
[2017-03-30] MEDS: OSELTAMIVIR PHOSPHATE 6 MG/ML SUSP PO SCH (21:18)
[2017-03-31] VITALS (8 sets, daily range): BP systolic 151–164; BP diastolic 65–68; PULSE 66–73; TEMP 37.1–37.2; O2SAT 94–97
[2017-03-31] MEDS: SODIUM CHLORIDE 0.9% 1000ML 1,000 ML IV SCH ×2 (02:27→15:26)
--- NOTE | 2017-03-31 04:24 | Progress Note ---
Internal Med Progress Note Date of Service: Mar 31, 2017. Provider Documentation: Vital Signs: Date Time Temp Pulse Resp B/P (MAP) Pulse Ox O2 Delivery O2 Flow Rate FiO2 03/31/17 02:31 37.1 03/31/17 00:35 95 Room Air 03/30/17 23:39 37.3 76 18 167/65 (99) 95 Room Air 03/30/17 20:29 78 18 157/69 (98) 90 Room Air 03/30/17 19:13 70 16 90 Room Air 03/30/17 16:00 97 Room Air 03/30/17 15:23 36.9 73 18 159/73 (101) 93 Room Air 03/30/17 15:16 73 16 93 Room Air 03/30/17 13:30 37.0 79 16 157/72 93 Nasal Cannula 2.0 03/30/17 12:50 79 03/30/17 12:42 79 20 153/81 94 Nasal Cannula 2.0 03/30/17 12:00 81 20 168/94 96 Nasal Cannula 2.0 03/30/17 11:30 85 20 164/88 95 Nasal Cannula 2.0 03/30/17 11:00 87 28 171/86 96 Nasal Cannula 2.0 03/30/17 10:38 87 Nasal Cannula 2.0 03/30/17 10:35 38.8 03/30/17 10:33 91 26 165/95 91 Room Air 03/30/17 09:12 97 03/30/17 09:05 Room Air 03/30/17 08:34 39.4 93 20 183/72 92 Room Air Lab Results: Results Past 24 Hours Test 03/30/17 09:05 03/30/17 09:18 03/31/17 04:36 Range/Units White Blood Count 9.40 7.64 4.8-10.8 K/uL Red Blood Count 4.75 4.65 4.2-5.4 M/uL Hemoglobin 14.4 13.8 12.0-16.0 g/dL Hematocrit 41.8 41.0 37-47 % Mean Corpuscular Volume 88.0 88.2 80-100 fL Mean Corpuscular Hemoglobin 30.3 29.7 25-34 pg Mean Corpuscular Hemoglobin Concent 34.4 33.7 32-36 g/dl Platelet Count 199 170 130-400 K/uL Mean Platelet Volume 9.0 9.3 7.4-10.4 fL Neutrophils (%) (Auto) 83.3 72.3 % Lymphocytes (%) (Auto) 7.1 19.2 % Monocytes (%) (Auto) 9.0 8.1 % Eosinophils (%) (Auto) 0.0 0.0 % Basophils (%) (Auto) 0.3 0.3 % Neutrophils # (Auto) 7.82 5.52 1.4-6.5 K/uL Lymphocytes # (Auto) 0.67 1.47 1.2-3.4 K/uL Monocytes # (Auto) 0.85 0.62 0.11-0.59 K/uL Eosinophils # (Auto) 0.00 0.00 0-0.5 K/uL Basophils # (Auto) 0.03 0.02 0-0.2 K/uL RDW Standard Deviation 43.7 44.6 36.4-46.3 fL RDW Coefficient of Variation 13.6 13.8 11.5-14.5 % Immature Granulocyte % (Auto) 0.3 0.1 % Immature Granulocyte # (Auto) 0.03 0.01 0.00-0.02 K/uL Prothrombin Time 11.7 9.0-12.0 SECONDS Prothromb Time International Ratio 1.1 0.9-1.1 Activated Partial Thromboplast Time 28.2 21.0-31.0 SECONDS Partial Thromboplastin Ratio 1.1 Sodium Level 134 135 136-145 mmol/L Potassium Level 3.2 3.9 3.5-5.1 mmol/L Chloride Level 99 105 98-107 mmol/L Carbon Dioxide Level 26 25 21-32 mmol/L Anion Gap 9.0 5.0 3-11 mmol/L Blood Urea Nitrogen 9 11 7-18 mg/dl Creatinine 0.72 0.69 0.60-1.20 mg/dl Est Creatinine Clear Calc Drug Dose 52.0 52.0 ml/min Estimated GFR () 90.4 94.0 Estimated GFR (Non- 78.0 81.1 BUN/Creatinine Ratio 12.3 15.6 10-20 Random Glucose 108 114 70-99 mg/dl Calcium Level 9.3 8.2 8.5-10.1 mg/dl Magnesium Level 2.0 1.9 1.8-2.4 mg/dl Total Bilirubin 0.6 0.2-1 mg/dl Direct Bilirubin 0.2 0-0.2 mg/dl Aspartate Amino Transf (AST/SGOT) 50 15-37 U/L Alanine Aminotransferase (ALT/SGPT) 40 12-78 U/L Alkaline Phosphatase 94 45-117 U/L Total Creatine Kinase 88 26-192 U/L Creatine Kinase MB < 0.5 0.5-3.6 ng/ml Creatine Kinase MB Ratio 0-3.0 Troponin I < 0.015 0-0.045 ng/ml Total Protein 8.1 6.4-8.2 gm/dl Albumin 3.9 3.4-5.0 gm/dl Lipase 95 73-393 U/L Thyroid Stimulating Hormone (TSH) 0.459 0.300-4.500 uIu/ml Influenza Type A Antigen POS for Influ A NEG Influenza Type B Antigen Neg for Influ B NEG Microbiology Results 03/30/17 Blood Culture, Received Pending 03/30/17 Blood Culture, Received Pending 03/31/17 C.difficile Toxin B Gene (PCR) - Final, Complete No C. difficile toxin B gene detected
[2017-03-31 05:05] LABS: BASO % 0.3 %; BASO ABS # 0.02 K/uL (0-0.2); HEMOGLOBIN 13.8 g/dL (12.0-16.0); IG# 0.01 K/uL (0.00-0.02); LYMPH % 19.2 %; LYMPH ABS # 1.47 K/uL (1.2-3.4); MEAN CELL VOLUME 88.2 fL (80-100); MEAN CORPUSCULAR HEMOGLOBIN 29.7 pg (25-34); MEAN CORPUSCULAR HGB CONC 33.7 g/dl (32-36); MEAN PLATELET VOLUME 9.3 fL (7.4-10.4); MONO % 8.1 %; MONO ABS # 0.62 K/uL (0.11-0.59); NEUT % 72.3 %; NEUT ABS # 5.52 K/uL (1.4-6.5); PLATELET COUNT 170 K/uL (130-400); RED CELL DISTRIBUTION WIDTH CV 13.8 % (11.5-14.5); RED CELL DISTRIBUTION WIDTH SD 44.6 fL (36.4-46.3); WHITE BLOOD COUNT 7.64 K/uL (4.8-10.8)
[2017-03-31 05:40] LABS: CALCIUM 8.2 mg/dl (8.5-10.1); CREATININE 0.69 mg/dl (0.60-1.20); POTASSIUM 3.9 mmol/L (3.5-5.1)
[2017-03-31] MEDS: ALBUT/IPRATROP 3MG/0.5MG NEB 3 ML VIAL INH SCH (07:09)
[2017-03-31] MEDS ORDERED: ALBUT/IPRATROP 3MG/0.5MG NEB 3 ML VIAL INH PRN (08:00)
--- NOTE | 2017-03-31 08:14 | Clinical Documentation Query ---
CLINICAL DOCUMENTATION QUERY An 81 year old female who presents to the ED with generalized fatigue and fevers, with documented "chronic mild systolic dysfunction" and an echocardiogram on 07/18/2016. In your clinical opinion is this patient being managed for: ( ) Chronic systolic CHF ( x ) Not Agree ( ) Other explanation of clinical findings (Please Explain) ( ) Unable to determine (Please Define) ( ) Need to Discuss Patient primarily has the influenza and fever. The comment in the history about her heart is not the active issue during this hospital stay The medical record reflects the following clinical findings, treatment, and risk factors. Clinical Indicators: Echo left ventricular systolic function reduced, EF = 45-50%, decreased breath sounds, crackles bilateral lung bases Treatment: O2, I&O Risk Factors: Afib, HTN Please clarify and document your clinical opinion in the progress notes and discharge summary. Terms such as "probable", "suspected", "likely", "questionable", "possible", or "still to be ruled out" are acceptable. IF IN AGREEMENT, YOU MUST DOCUMENT ABOVE DIAGNOSTIC STATEMENT IN DAILY PROGRESS NOTES AND DISCHARGE SUMMARY. This document is not part of the patient's record. Thank You, Savannah Watters RN [phone]
[2017-03-31] MEDS ORDERED: ENOXAPARIN 30 MG/0.3 ML SYR SQ SCH (09:00)
[2017-03-31] MEDS ORDERED: LOSARTAN POTASSIUM 50 MG TAB PO SCH (09:00)
[2017-03-31] MEDS ORDERED: CALCIUM 600MG + VIT D 400 IU TAB PO SCH (09:00)
[2017-03-31] MEDS ORDERED: VITAMIN B COMPLEX TAB PO SCH (09:00)
[2017-03-31] MEDS ORDERED: ASPIRIN 81 MG ECTAB PO SCH ×2 (09:00)
[2017-03-31] MEDS ORDERED: DILTIAZEM HCL 180 MG CAPCR PO SCH (09:00)
[2017-03-31] MEDS: TOLTERODINE TARTRATE 1 MG TAB PO SCH (09:28)
[2017-03-31] MEDS: OSELTAMIVIR PHOSPHATE 6 MG/ML SUSP PO SCH (09:29)
[2017-03-31] MEDS: METOPROLOL SUCC 50MG EXT REL TAB PO SCH (09:32)
--- NOTE | 2017-03-31 15:22 | Progress Note ---
Internal Med Progress Note Date of Service: Mar 31, 2017. Provider Documentation: SUBJECTIVE: Patient denies feeling subjective fevers since being on medical vela. Denies shortness of breath or pain OBJECTIVE: Exam: General- no acute distress Eyes- EOMI Neck- trachea midline, no JVD Lungs- Clear to auscultation bilaterally, no wheezing Heart- regular rate, rhythm Abdomen- soft, nontender, + bowel sounds Extremities- no edema Neuro- alert and oriented ASSESSMENT & PLAN: Patient was evaluated at [facility] with fever (39.4 Celsius) and was found to be influenza A positive. After hospital emergency room presentation on 03/30/17, patient was admitted to the medical wards. She has been breathing comfortably on room air. Patient has been afebrile on 03/31/17 with maximum temperature 37.1 Celsius The fever likley is due to the influenza A as there is no pneumonia on the chest X ray Chest X ray 03/30/17: The heart remains mildly enlarged. No focal lung consolidations to suggest pneumonia. No evidence for pulmonary edema. No pleural effusions. No pneumothorax Patient was started on Tamiflu on 03/30/16. 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 DISPOSITION Discharge to home Up coming appointments 04/07/2017 11:20 AM Susan Williamson DO Internal Medicine [facility] 04/08/2017 10:15 AM Gilmar Walters PA-C Cardiology [facility] Vital Signs: Date Time Temp Pulse Resp B/P (MAP) Pulse Ox O2 Delivery O2 Flow Rate FiO2 03/31/17 11:15 72 15 97 Room Air 03/31/17 08:01 Room Air 03/31/17 07:27 37.1 66 18 164/68 (100) 94 Room Air 03/31/17 07:10 66 14 94 Room Air 03/31/17 02:31 37.1 03/31/17 00:35 95 Room Air 03/30/17 23:39 37.3 76 18 167/65 (99) 95 Room Air 03/30/17 20:29 78 18 157/69 (98) 90 Room Air 03/30/17 19:13 70 16 90 Room Air 03/30/17 16:00 97 Room Air Lab Results: Results Past 24 Hours Test 03/31/17 04:36 Range/Units White Blood Count 7.64 4.8-10.8 K/uL Red Blood Count 4.65 4.2-5.4 M/uL Hemoglobin 13.8 12.0-16.0 g/dL Hematocrit 41.0 37-47 % Mean Corpuscular Volume 88.2 80-100 fL Mean Corpuscular Hemoglobin 29.7 25-34 pg Mean Corpuscular Hemoglobin Concent 33.7 32-36 g/dl Platelet Count 170 130-400 K/uL Mean Platelet Volume 9.3 7.4-10.4 fL Neutrophils (%) (Auto) 72.3 % Lymphocytes (%) (Auto) 19.2 % Monocytes (%) (Auto) 8.1 % Eosinophils (%) (Auto) 0.0 % Basophils (%) (Auto) 0.3 % Neutrophils # (Auto) 5.52 1.4-6.5 K/uL Lymphocytes # (Auto) 1.47 1.2-3.4 K/uL Monocytes # (Auto) 0.62 0.11-0.59 K/uL Eosinophils # (Auto) 0.00 0-0.5 K/uL Basophils # (Auto) 0.02 0-0.2 K/uL RDW Standard Deviation 44.6 36.4-46.3 fL RDW Coefficient of Variation 13.8 11.5-14.5 % Immature Granulocyte % (Auto) 0.1 % Immature Granulocyte # (Auto) 0.01 0.00-0.02 K/uL Sodium Level 135 136-145 mmol/L Potassium Level 3.9 3.5-5.1 mmol/L Chloride Level 105 98-107 mmol/L Carbon Dioxide Level 25 21-32 mmol/L Anion Gap 5.0 3-11 mmol/L Blood Urea Nitrogen 11 7-18 mg/dl Creatinine 0.69 0.60-1.20 mg/dl Est Creatinine Clear Calc Drug Dose 52.0 ml/min Estimated GFR () 94.0 Estimated GFR (Non- 81.1 BUN/Creatinine Ratio 15.6 10-20 Random Glucose 114 70-99 mg/dl Calcium Level 8.2 8.5-10.1 mg/dl Magnesium Level 1.9 1.8-2.4 mg/dl Microbiology Results 03/31/17 C.difficile Toxin B Gene (PCR) - Final, Complete No C. difficile toxin B gene detected
[2017-03-31] MEDS ORDERED: TMFS PO (15:26)
--- NOTE | 2017-03-31 15:39 | Discharge Instructions ---
Discharge Instructions Date of Service Mar 31, 2017. Admission Reason for Admission: Influenza Discharge Discharge Diagnosis / Problem: Fever, Influenza A, Hypokalemia Discharge Goals Goal(s): Improve disease control Activity Recommendations Activity Limitations: per Instructions/Follow-up section Shower/Bathe: no limitations . Instructions / Follow-Up Instructions / Follow-Up Patient was evaluated at [facility] with fever (39.4 Celsius) and was found to be influenza A positive. After hospital emergency room presentation on 03/30/17, patient was admitted to the medical wards. She has been breathing comfortably on room air. Patient has been afebrile on 03/31/17 with maximum temperature 37.1 Celsius The fever likely is due to the influenza A as there is no pneumonia on the chest X ray Chest X ray 03/30/17: The heart remains mildly enlarged. No focal lung consolidations to suggest pneumonia. No evidence for pulmonary edema. No pleural effusions. No pneumothorax Patient was started on Tamiflu on 03/30/16. 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 DISPOSITION Discharge to home Up coming appointments 04/07/2017 11:20 AM Susan Williamson DO Internal Medicine [facility] 04/08/2017 10:15 AM Gilmar Walters PA-C Cardiology [facility] Current Hospital Diet Patient's current hospital diet: AHA Diet (Heart Healthy) Discharge Diet Recommended Diet: AHA Diet (Heart Healthy) Pending Studies Studies pending at discharge: no Laboratory Results 03/31/17 04:36 Red Blood Count 4.65, Mean Corpuscular Volume 88.2, Mean Corpuscular Hemoglobin 29.7, Mean Corpuscular Hemoglobin Concent 33.7, Mean Platelet Volume 9.3, Neutrophils (%) (Auto) 72.3, Lymphocytes (%) (Auto) 19.2, Monocytes (%) (Auto) 8.1, Eosinophils (%) (Auto) 0.0, Basophils (%) (Auto) 0.3, Neutrophils # (Auto) 5.52, Lymphocytes # (Auto) 1.47, Monocytes # (Auto) 0.62, Eosinophils # (Auto) 0.00, Basophils # (Auto) 0.02 03/31/17 04:36 Test 03/30/17 00:00 03/30/17 09:05 03/30/17 09:18 03/31/17 04:36 Urine Color YELLOW Urine Appearance CLEAR (CLEAR) Urine pH 6.0 (4.5-7.5) Urine Specific [place] 1.019 (1.000-1.030) Urine Protein 2+ (NEG) Urine Glucose (UA) NEG (NEG) Urine Ketones 1+ (NEG) Urine Occult Blood 2+ (NEG) Urine Nitrite NEG (NEG) Urine Bilirubin NEG (NEG) Urine Urobilinogen NEG (NEG) Urine Leukocyte Esterase NEG (NEG) Urine WBC (Auto) 1-5 /hpf (0-5) Urine RBC (Auto) >30 /hpf (0-4) Urine Hyaline Casts (Auto) 1-5 /lpf (0-5) Urine Epithelial Cells (Auto) 20-30 /lpf (0-5) Urine Bacteria (Auto) NEG (NEG) Prothrombin Time 11.7 SECONDS (9.0-12.0) Prothromb Time International Ratio 1.1 (0.9-1.1) Activated Partial Thromboplast Time 28.2 SECONDS (21.0-31.0) Partial Thromboplastin Ratio 1.1 Total Bilirubin 0.6 mg/dl (0.2-1) Direct Bilirubin 0.2 mg/dl (0-0.2) Aspartate Amino Transf (AST/SGOT) 50 U/L (15-37) Alanine Aminotransferase (ALT/SGPT) 40 U/L (12-78) Alkaline Phosphatase 94 U/L (45-117) Total Creatine Kinase 88 U/L (26-192) Creatine Kinase MB < 0.5 ng/ml (0.5-3.6) Creatine Kinase MB Ratio (0-3.0) Troponin I < 0.015 ng/ml (0-0.045) Total Protein 8.1 gm/dl (6.4-8.2) Albumin 3.9 gm/dl (3.4-5.0) Lipase 95 U/L (73-393) Thyroid Stimulating Hormone (TSH) 0.459 uIu/ml (0.300-4.500) Influenza Type A Antigen POS for Influ A (NEG) Influenza Type B Antigen Neg for Influ B (NEG) White Blood Count 7.64 K/uL (4.8-10.8) Red Blood Count 4.65 M/uL (4.2-5.4) Hemoglobin 13.8 g/dL (12.0-16.0) Hematocrit 41.0 % (37-47) Mean Corpuscular Volume 88.2 fL (80-100) Mean Corpuscular Hemoglobin 29.7 pg (25-34) Mean Corpuscular Hemoglobin Concent 33.7 g/dl (32-36) Platelet Count 170 K/uL (130-400) Mean Platelet Volume 9.3 fL (7.4-10.4) Neutrophils (%) (Auto) 72.3 % Lymphocytes (%) (Auto) 19.2 % Monocytes (%) (Auto) 8.1 % Eosinophils (%) (Auto) 0.0 % Basophils (%) (Auto) 0.3 % Neutrophils # (Auto) 5.52 K/uL (1.4-6.5) Lymphocytes # (Auto) 1.47 K/uL (1.2-3.4) Monocytes # (Auto) 0.62 K/uL (0.11-0.59) Eosinophils # (Auto) 0.00 K/uL (0-0.5) Basophils # (Auto) 0.02 K/uL (0-0.2) RDW Standard Deviation 44.6 fL (36.4-46.3) RDW Coefficient of Variation 13.8 % (11.5-14.5) Immature Granulocyte % (Auto) 0.1 % Immature Granulocyte # (Auto) 0.01 K/uL (0.00-0.02) Anion Gap 5.0 mmol/L (3-11) Est Creatinine Clear Calc Drug Dose 52.0 ml/min Estimated GFR () 94.0 Estimated GFR (Non- 81.1 BUN/Creatinine Ratio 15.6 (10-20) Calcium Level 8.2 mg/dl (8.5-10.1) Magnesium Level 1.9 mg/dl (1.8-2.4) Date/Time Source Procedure Growth Status 03/30/17 09:15 Blood Blood Culture Pending Received 03/31/17 00:00 Stool C.difficile Toxin B Gene (PCR) - Final No C. difficile toxin B gene detected Complete 03/30/17 00:00 Urine , Clean Catch Urine Culture Pending Received Medical Emergencies . Who to Call and When: Medical Emergencies: If at any time you feel your situation is an emergency, please call 911 immediately. . Non-Emergent Contact Non-Emergency issues call your: Primary Care Provider Call Non-Emergent contact if: you have any medication questions . . "Provider Documentation" section prepared by Jet Garza. . VTE Core Measure Inpt VTE Proph given/why not?: Enoxaparin (Lovenox)SQ
--- NOTE | 2017-03-31 15:42 | Discharge Summary ---
Discharge Summary Date of Service Mar 31, 2017. Discharge Summary Admission Date: Mar 30, 2017 at 11:46 Discharge Date: Mar 31, 2017 Discharge Disposition: Home Principal Diagnosis: Fever, Influenza A, Hypokalemia Medication Reconciliation New Medications: Oseltamivir Phosphate (Tamiflu) 6 Mg/Ml Susp 30 MG PO BID for 3 Days, #6 TAB Continued Medications: Aspirin (Aspirin Ec) 81 Mg Tab 81 MG PO DAILY B-Complex W/ Folic Acid (B Complex) 1 Tab Tab 1 TAB PO DAILY Calcium Citrate-Vitamin D (Citracal + D3 Maximum) 1 Tab Tab 1 TAB PO DAILY Celecoxib (CeleBREX) 200 Mg Cap 1 CAP PO DAILY PRN for Pain for 30 Days, #30 CAP 2 Refills Diltiazem HCl (Diltiazem HCl ER) 180 Mg Capcr 180 MG PO QAM for 30 Days, #30 Ezetimibe-Simvastatin (Ezetimibe/Simvastatin 10-10 mg) 1 Tab Tab 1 TAB PO DAILY Losartan Potassium (Cozaar) 100 Mg Tab 1 TAB PO DAILY for 30 Days, #30 TAB Metoprolol Succinate (Metoprolol Succinate ER) 50 Mg Tabcr 50 MG PO BID for 30 Days, #60 Timolol Maleate (Ophth) (Timoptic) 0.5 % Anisa 1 DROPS OP UD for 60 Days, #10 ML 3 Refills Tolterodine Tartrate (Tolterodine Tartrate) 1 Mg Tab 1 MG PO BID Tramadol (Ultram) 50 Mg Tab 50 MG PO Q6H PRN for Pain, TAB Admission Information HPI (per Admitting provider): 81 year old female who presents to the ED with generalized fatigue and fevers. Patient is somewhat a poor historian, has difficulty providing details about her recent illness. Per son who is at the bedside, patient has had more fatigue the past couple of days and was running fevers. She was around her daughter who was recently diagnosed with the flu. Patient reports chronic shortness of breath which is unchanged from baseline. She has a dry non productive cough. No chest pain. She denies lightheadedness, dizziness, diaphoresis, and syncopal events. No abdominal pain, nausea, vomiting, or diarrhea. She denies urinary symptoms. In the ED, patient is found to be influenza A positive. She was also mildly hypoxic on room air that improved with oxygen 2L via NC. Physical Exam (per Admitting): General Appearance: WD/WN, no apparent distress Head: normocephalic, atraumatic Eyes: normal inspection, EOMI, sclerae normal ENT: hearing grossly normal, + pertinent finding (mucous membranes moist) Neck: supple, no JVD, trachea midline Respiratory/Chest: + decreased breath sounds, + crackles (faint, BL bases) Cardiovascular: regular rate, rhythm, no edema, normal peripheral pulses Abdomen/GI: normal bowel sounds, non tender, soft, no organomegaly Extremities/Musculoskelatal: normal inspection, no calf tenderness, normal capillary refill Neurologic/Psych: no motor/sensory deficits, alert, normal mood/affect, oriented x 3 Skin: normal color, warm/dry Hospital Course Patient was evaluated at [facility] with fever (39.4 Celsius) and was found to be influenza A positive. After hospital emergency room presentation on 03/30/17, patient was admitted to the medical wards. She has been breathing comfortably on room air. Patient has been afebrile on 03/31/17 with maximum temperature 37.1 Celsius The fever likley is due to the influenza A as there is no pneumonia on the chest X ray Chest X ray 03/30/17: The heart remains mildly enlarged. No focal lung consolidations to suggest pneumonia. No evidence for pulmonary edema. No pleural effusions. No pneumothorax Patient was started on Tamiflu on 03/30/16. 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 Discharge Instructions see above
== END 2017-03-31 17:08 | disposition home or self-care (01) | DRG 193 ==
LOC: C.EDB 08:28 → C.MS2W 11:46 → ENRESERV 12:45
PROVIDERS: ADMIT Hospitalist; ATTEND Hospitalist
DX: J10.1 Influenza due to other identified influenza virus with other respiratory manifestations (principal); J96.01 Acute respiratory failure with hypoxia; E87.1 Hypo-osmolality and hyponatremia; Z85.3 Personal history of malignant neoplasm of breast; M47.896 Other spondylosis, lumbar region; E78.5 Hyperlipidemia, unspecified; I10 Essential (primary) hypertension; I70.1 Atherosclerosis of renal artery; Z83.3 Family history of diabetes mellitus; E11.9 Type 2 diabetes mellitus without complications; I44.7 Left bundle-branch block, unspecified; H40.059 Ocular hypertension, unspecified eye; E87.6 Hypokalemia